=== PATIENT | male | born 1930 | race Two or more races ===

== ENCOUNTER 2016-06-21 16:16 | Inpatient (IN) | payer MEDICARE, OTHER ==
[~2016-06-21] VITALS: Ht 182.9 cm; Wt 68.2 kg
[2016-06-21] VITALS (16 sets, daily range): BP systolic 58–137; BP diastolic 28–117; PULSE 38–88; RESP 16–34; TEMP 90; Ht 182.9 cm; Wt 68.2 kg
[~2016-06-21 16:16] MED LIST: CA CHLORIDE 10% 10 ML SYRINGE ONE; EPINEPHrine 0.1 MG/ML SYG ONE; NA BICARBONATE 8.4% 50 ML SYG ONE
[2016-06-21] MEDS ORDERED: SOD CHLORIDE 0.9% 1,000 ML IV STA (16:18)
[2016-06-21 16:35] LABS: ADD SCAN DIFF NO
[2016-06-21 16:39] LABS: ABNORMAL IP MESSAGE 1; HEMATOCRIT 35.3 % (42.0-52.0); HEMOGLOBIN 12.8 g/dl (14.0-18.0); MEAN CORPUSCULAR HEMOGLOBIN 30.1 pg (29.0-33.0); MEAN CORPUSCULAR HGB CONC 36.3 g/dl (32.0-37.0); MEAN CORPUSCULAR VOLUME 83.1 fl (82.0-101.0); MEAN PLATELET VOLUME 13.8 fl (7.4-10.4); PLATELET COUNT 136 10^3/UL (140-415); RED BLOOD COUNT 4.25 10^6/ul (4.70-6.10); RED CELL DISTRIBUTION WIDTH 15.3 % (11.5-14.5)
[2016-06-21 16:55] LABS: INR 1.82; PROTIME 21.2 Sec (12.2-14.2); PT RATIO 1.7
[2016-06-21 16:56] LABS: PARTIAL THROMBOPLASTIN TIME 34.6 Sec (25.0-35.0)
[2016-06-21 16:57] LABS: ALANINE AMINOTRANSFERASE 41 IU/L (13-69); ALBUMIN 2.6 g/dl (3.3-4.9); ALBUMIN/GLOBULIN RATIO 0.74; ALKALINE PHOSPHATASE 299 IU/L (42-121); ANION GAP 37 (8-16); ASPARTATE AMINO TRANSFERASE 26 IU/L (15-46); BILIRUBIN,INDIRECT 0.2 mg/dl (0-1.1); BILIRUBIN,TOTAL 2.1 mg/dl (0.2-1.3); CHLORIDE 91 mmol/L (97-110); SODIUM 126 mmol/L (135-144); TOTAL PROTEIN 6.1 g/dl (6.1-8.1)
[2016-06-21 17:06] LABS: BLOOD UREA NITROGEN > 240 mg/dl (7-20); CREATININE 14.07 mg/dl (0.61-1.24)
[2016-06-21 17:10] LABS: CARBON DIOXIDE 6 mmol/L (21-31); GLUCOSE 451 mg/dl (70-220); POTASSIUM 8.1 mmol/L (3.5-5.1)
--- NOTE | 2016-06-21 17:11 | RADRPT ---
PROCEDURE: XR Chest. CLINICAL INDICATION: Shortness of breath. Altered mental status. TECHNIQUE: Single frontal view. COMPARISON: None. FINDINGS: The lungs are clear. The heart is enlarged. There is calcification in the aorta consistent with atherosclerosis. There is no pleural effusion. There is no pneumothorax. IMPRESSION: 1. Cardiomegaly and atherosclerosis. 2. Clear lungs. RPTAT: QQ .Ramirez Yee MD, MD Date Time Electronically viewed and signed by .Ramirez Yee MD, MD on 06/21/2016 17:11 .R/
[2016-06-21 17:12] LABS: TROPONIN-I < 0.012 ng/ml (0.00-0.12)
[2016-06-21] MEDS ORDERED: NA POLYST SULFON 15 GM/60 ML BTL PO STA (17:12)
[2016-06-21] MEDS ORDERED: INSULIN REGULAR 10 ML INJ IV STA ×2 (17:12→19:58)
[2016-06-21] MEDS ORDERED: NA BICARBONATE 8.4% 50 ML SYG IV STA ×3 (17:12→23:42)
[2016-06-21] MEDS ORDERED: CA CHLORIDE 10% 10 ML SYRINGE IV STA ×2 (17:12→19:58)
[2016-06-21 17:14] LABS: T3 UPTAKE 48.9 % (23.5-40.5)
[2016-06-21] MEDS ORDERED: CEFEPIME 2GM/50 ML (PMX) 50 ML IVPB STA (17:24)
[2016-06-21] MEDS ORDERED: LEVOFLOXACIN 750MG/D5W (PMX) 150 ML IVPB ONE (17:30)
[2016-06-21] MEDS ORDERED: SOD CHLORIDE 0.9% 1,000 ML IV ONE (17:30)
[2016-06-21] MEDS ORDERED: DEXTROSE 50% 50 ML SYRINGE IV ONE ×2 (17:30→20:00)
[2016-06-21] MEDS ORDERED: AMLO2.5T2 PO (18:06)
--- NOTE | 2016-06-21 18:08 | RADRPT ---
PROCEDURE: CT Brain without contrast. CLINICAL INDICATION: Altered mental status. TECHNIQUE: A CT of the brain without contrast was performed utilizing axial sections from the skul l base through the vertex. The patient was scanned without intravenous contrast enhancement. Sagitta l and coronal reformatted images were obtained using the data from the axial images. Total exam DLP is 900.28 mGy-cm. CTDIvol is 45.01 mGy. One or more of the following dose reduction techniques were used: Automated exposure control, adjustment of the mA and/or kV according to patient size, use of iterative reconstruction technique. COMPARISON: None available. FINDINGS: The images are suboptimal due to patient motion. There is normal burger-white matter differentiation. There is enlargement of the ventricles and subarachnoid spaces consistent with atrophy. There is decreased attenuation of the periventricular white matter consistent with microangiopathic ischemic change. There is no intracranial hemorrhage or space-occupying lesion. There are vascular calcifications consistent with atherosclerosis. There is no skull fracture or lytic lesion. IMPRESSION: 1. Atrophy. 2. Microangiopathic ischemic change. 3. Atherosclerosis. 4. Suboptimal images due to patient motion. 5. No intracranial hemorrhage. 6. Otherwise unremarkable noncontrast CT scan of the brain. RPTAT: QQ .Ramirez Yee MD, Date Time Electronically viewed and signed by .Ramirez Yee MD, on 06/21/2016 18:07 .R/
[2016-06-21] MEDS ORDERED: SODIUM CHLORIDE 0.9% 1L BAG IV* STA (18:09)
[2016-06-21 18:24] LABS: LYMPHOCYTES # 0.4 10^3/ul (0.8-2.9); MONOCYTE # 1.2 10^3/ul (0.3-0.9); NEUTROPHIL # 38.8 10^3/ul (1.6-7.5)
[2016-06-21 18:25] LABS: PLATELET ESTIMATE PLT APPEAR ADEQUATE
[2016-06-21] MEDS ORDERED: INSULIN REGULAR, HUMAN 100 UNIT/1 ML 3ML VIAL IV SCH ×2 (18:30→20:30)
--- NOTE | 2016-06-21 18:44 | ERA ---
ER Documentation Chief Complaint Date/Time DATE: 06/21/16 TIME: 18:34 Chief Complaint ALOC, FOUND DOWN AT HOME UNKNOWN LENGTH OF TIME HPI This is healthy 85-year-old man according to the family he was very active just 2 days ago. The patient had a recent hip replacement a month ago. The patient has been doing well. The family says today he was started having altered level of consciousness and was brought in by EMS. There is no other history given. They state that he has had no cough no complaints no fever no vomiting diarrhea. They state he has been in relatively good health until today. On arrival the patient is awake and seems somewhat confused but in no acute distress ROS All systems reviewed and are negative except as per history of present illness. Medications Home Meds Reported Medications Amlodipine Besylate* (Norvasc*) Unknown Strength Tablet, PO DAILY, TAB 06/21/16 Allergies Allergies: Coded Allergies: No Known Allergy (Unverified , 06/21/16) PMhx/Soc Medical and Surgical Hx: Unable to obtain Smoking Status: Unknown if ever smoked FmHx Family History: No coronary disease Physical Exam Vitals Vital Signs Date Time Temp Pulse Resp B/P Pulse Ox O2 Delivery O2 Flow Rate FiO2 06/21/16 16:30 Nasal Cannula 2 06/21/16 16:18 90.0 84 18 141/116 98 Physical Exam Const: Well-developed, well-nourished Head: Atraumatic, normocephalic Eyes: Normal Conjunctiva, PERRLA, EOMI, normal sclera, no nystagmus ENT: Normal External Ears, Nose and Mouth, moist mucus membranes. Neck: Full range of motion. No meningismus, no lymphadenopathy. Resp: Clear to auscultation bilaterally, no wheezing, rhonchi, rales Cardio: Regular rate and rhythm, no murmurs, S1 S2 present Abd: Soft, non tender x 4, non distended. Normal bowel sounds, no guarding or rebound, no pulsitile abdominal masses or bruits Skin: No petechiae or rashes, no ecchymosis , no maculopapular rash Back: No midline or flank tenderness Ext: No cyanosis, or edema, FROM x 4, normal inspection, neurovascularly intact x 4 Neur: Awake and alert,, smiles, pleasant, somewhat confused STR 5/5 x 4 , sensation intact x 4, no focal findings, cerebellum intact Psych: Normal Mood and Affect Result Diagram: 06/21/16 1625 06/21/16 1625 Results 24 hrs Laboratory Tests Test 06/21/16 16:25 06/21/16 17:40 06/21/16 18:32 06/21/16 19:20 White Blood Count 41.310^3/ul Red Blood Count 4.2510^6/ul Hemoglobin 12.8g/dl Hematocrit 35.3% Mean Corpuscular Volume 83.1fl Mean Corpuscular Hemoglobin 30.1pg Mean Corpuscular Hemoglobin Concent 36.3g/dl Red Cell Distribution Width 15.3% Platelet Count 16054^3/UL Mean Platelet Volume 13.8fl Neutrophils % 94.0% Band Neutrophils % 2.0% Lymphocytes % 1.0% Monocytes % 3.0% Eosinophils % % Neutrophils # 38.810^3/ul Lymphocytes # 0.410^3/ul Monocytes # 1.210^3/ul Eosinophils # 10^3/ul Platelet Estimate PLT APPEAR ADEQUATE Prothrombin Time 21.2Sec Prothrombin Time Ratio 1.7 INR International Normalized Ratio 1.82 Activated Partial Thromboplast Time 34.6Sec Sodium Level 126mmol/L Potassium Level 8.1mmol/L Chloride Level 91mmol/L Carbon Dioxide Level 6mmol/L Anion Gap 37 Blood Urea Nitrogen > 240mg/dl Creatinine 14.07mg/dl Glucose Level 451mg/dl Calcium Level 6.0mg/dl Total Bilirubin 2.1mg/dl Direct Bilirubin 1.90mg/dl Indirect Bilirubin 0.2mg/dl Aspartate Amino Transf (AST/SGOT) 26IU/L Alanine Aminotransferase (ALT/SGPT) 41IU/L Alkaline Phosphatase 299IU/L Troponin I < 0.012ng/ml Total Protein 6.1g/dl Albumin 2.6g/dl Globulin 3.50g/dl Albumin/Globulin Ratio 0.74 Free Thyroxine Index 0.83ug/ml Thyroxine (T4) 1.7ug/dl Triiodothyronine (T3) Uptake 48.9% Lactic Acid Level 2.4mmol/L 2.2mmol/L Urine Color YELLOW Urine Clarity TURBID Urine pH 5.5 Urine Specific [place] 1.025 Urine Ketones 15 Urine Nitrite NEGATIVE Urine Bilirubin NEGATIVE Urine Urobilinogen 0.2 E.U./dL Urine Leukocyte Esterase 3+ Urine Microscopic RBC >50/HPF Urine Microscopic WBC >200/HPF Urine Transitional Epithelial Cells MODERATE Urine Amorphous Urates MANY Urine Bacteria MODERATE Urine Hemoglobin 3+ Urine Glucose 0.1%% Urine Total Protein 4+ Current Medications Medications (Trade) Dose Ordered Sig/Kandace Route PRN Reason Start Time Stop Time Status Last Admin Dose Admin Sodium Chloride (NS) 1,000 ml @ 1,000 mls/hr Q1H STAT IV 06/21/16 16:18 06/21/16 17:17 DC 06/21/16 16:27 Sodium Polystyrene Sulfonate (Kayexalate) 30 gm ONCE STAT PO 06/21/16 17:12 06/21/16 17:13 DC 06/21/16 18:12 Sodium Bicarbonate (Na Bicarb 8.4% Syg) 50 ml ONCE STAT IV 06/21/16 17:12 06/21/16 17:13 DC 06/21/16 18:04 Calcium Chloride (Ca Chloride 10% Syg) 1,000 mg ONCE STAT IV 06/21/16 17:12 06/21/16 17:13 DC 06/21/16 18:04 Insulin Human Regular (Novolin-R) 10 unit ONCE STAT IV 06/21/16 17:12 06/21/16 17:13 DC Dextrose 50 ml 50 ml ONCE ONCE IV 06/21/16 17:30 06/21/16 17:31 DC 06/21/16 18:13 Cefepime HCl 50 ml @ 100 mls/hr ONCE STAT IVPB 06/21/16 17:24 06/21/16 17:53 DC 06/21/16 18:11 Levofloxacin/ Dextrose 150 ml @ 100 mls/hr ONCE ONCE IVPB 06/21/16 17:30 06/21/16 18:59 DC 06/21/16 18:38 Sodium Chloride (NS) 1,000 ml @ 1,000 mls/hr Q1H ONCE IV 06/21/16 17:30 06/21/16 18:29 DC 06/21/16 18:13 Insulin Human Regular (Humulin R) 10 unit ONCE IV 06/21/16 18:30 06/21/16 23:00 06/21/16 18:11 Sodium Chloride (NS) 2,110 ml BOLUS OVER 2 HOURS STAT IV* 06/21/16 18:09 06/21/16 18:28 DC 06/21/16 18:38 Morphine Sulfate (morphine) 2 mg ONCE ONCE IV 06/21/16 19:30 06/21/16 19:31 DC Ondansetron HCl (Zofran Inj) 4 mg ONCE STAT IV 06/21/16 19:09 06/21/16 19:10 DC Lidocaine (Xylocaine 1% (Mdv) 20 ml) 20 ml STK-MED ONCE .ROUTE 06/21/16 19:11 06/21/16 19:12 DC Procedures/MDM EKG: Rate/Rhythm: Undetermined rhythm, wide QRS, hyperacute T waves diffusely QRS, ST, QT: NORMAL CO, QRS, QT] Impression: Abnormal l EKG PROCEDURE: CT Brain without contrast. CLINICAL INDICATION: Altered mental status. TECHNIQUE: A CT of the brain without contrast was performed utilizing axial sections from the skull base through the vertex. The patient was scanned without intravenous contrast enhancement. Sagittal and coronal reformatted images were obtained using the data from the axial images. Total exam DLP is 900.28 mGy-cm. CTDIvol is 45.01 mGy. One or more of the following dose reduction techniques were used: Automated exposure control, adjustment of the mA and/or kV according to patient size, use of iterative reconstruction technique. COMPARISON: None available. FINDINGS: The images are suboptimal due to patient motion. There is normal burger-white matter differentiation. There is enlargement of the ventricles and subarachnoid spaces consistent with atrophy. There is decreased attenuation of the periventricular white matter consistent with microangiopathic ischemic change. There is no intracranial hemorrhage or space-occupying lesion. There are vascular calcifications consistent with atherosclerosis. There is no skull fracture or lytic lesion. IMPRESSION: 1. Atrophy. 2. Microangiopathic ischemic change. 3. Atherosclerosis. 4. Suboptimal images due to patient motion. 5. No intracranial hemorrhage. 6. Otherwise unremarkable noncontrast CT scan of the brain. RPTAT: QQ .Ramirez Yee MD, MD Date Time Electronically viewed and signed by .Ramirez Yee MD, on 06/21/2016 18:07 .R/ CC: IVETTE VILLAGOMEZ DO PROCEDURE: XR Chest. CLINICAL INDICATION: Shortness of breath. Altered mental status. TECHNIQUE: Single frontal view. COMPARISON: None. FINDINGS: The lungs are clear. The heart is enlarged. There is calcification in the aorta consistent with atherosclerosis. There is no pleural effusion. There is no pneumothorax. IMPRESSION: 1. Cardiomegaly and atherosclerosis. 2. Clear lungs. RPTAT: QQ .Ramirez Yee MD, MD Date Time Electronically viewed and signed by .Ramirez Yee MD, MD on 06/21/2016 17:11 .R/ CC: IVETTE VILLAGOMEZ DO Zamorano catheter is placed and belia pus came out. The patient was not complaining of any abdominal pain but after the Zamorano catheter was placed he keeps complaining of pain and reaching for the suprapubic and penis region. I feel this is purely from the Zamorano catheter not from any intra-abdominal process because he had no tenderness on initial exam I treated the hyperkalemia and given him sepsis fluid protocol fluids, blood cultures and antibiotics. Spoke with Dr. Womack and have arranged emergent hemodialysis. Spoke with Dr. Ramirez Yee at 6:30 PM he is going to place a Chauncey catheter now and the patient will go to the ICU to get his dialysis to treat his hyperkalemia and renal failure. Patient's vital signs have remained relatively stable. Current blood pressures 130/66 Admit MDM: Patient's infectious symptoms have not stabilized and the patient is at risk of rapid decompensation. The patient will be admitted for careful hydration, antibiotic therapy, and infectious source control. Severe Sepsis criteria: Infectious source: Urine End organ damage indicated by: Renal failure Lactate > 2.0 mmol/L Hypotension (SBP < 90 or >40 mmHG drop or MAP < 65) Acute Resp Failure (sat < 92% w/o oxygen) [employer] > 2.0 INR > 1.5 Plt < 100 Bili > 2 Sepsis Management: Time of recognition of severe sepsis/septic shock: 1800 Within 3 hours of recognition: Blood cultures x 2 before broad-spectrum antibiotics: Yes 30 ml/kg NS bolus completed Initial lactate 2.4 Repeat lactate 2.2 Accepting Care Team Current data and ongoing care discussed. Time: Admitting Physician: emile Biscuitware Brusher(s): Outstanding Data: None Critical Care Time: 45 minutes Treatments/Evaluations: Close monitoring and treatment of unstable vital signs, cardiorespiratory, and neurologic status, while maintaining tight balance of fluid, respiratory, and cardiac interventions. This includes the administration of emergency fluid management while maintaining close respiratory support as well as the provision of immediate and broad-spectrum antibiotic therapy, while performing a simultaneous assessment for possible sources in order to direct targeted therapy. This time includes discussing the case with the patient and the patient's family. This time also includes the consideration for invasive and chemical support to prevent cardiopulmonary collapse. This time does not include all procedures stated elsewhere in this record. This time also includes reviewing old records, labs and radiological studies. This time includes examining and re-examining the patient. Additionally, this time also includes arranging care with admitting and consulting physicians. Dr. Yee was trying to place the Chauncey catheter and the patient was getting more disoriented and combativ Discussed with the family the need to intubate him and to get the Chauncey placed and go to dialysis. They agreed Endotracheal Intubation by me: Pre assessment performed. See preceding note for details. Pre-oxygenation performed with 100% oxygen RSI: Performed w/o complication or hypoxic events. Medications as ordered. Blade: Mac 4 ET Tube: 7.5 cm Depth: 25] cm at the lip Intubation confirmed by colorimetric CO2, equal breath sounds, quiet over the stomach. Departure Diagnosis: Primary Impression: Hyperkalemia Additional Impressions: Renal failure Sepsis Qualified Code: A41.9 - Sepsis, due to unspecified organism Acidosis Urinary tract infection Qualified Code: N30.00 - Acute cystitis without hematuria Condition: Critical IVETTE VILLAGOMEZ DO June 21, 2016 18:44
[2016-06-21 18:51] LABS: ADD UMIC YES; URINE BILIRUBIN (Dip) NEGATIVE (NEGATIVE); URINE BLOOD (Dip) 3+ (NEGATIVE); URINE KETONES (Dip) 15 (NEGATIVE); URINE LEUKOCYTE ESTERASE (Dip) 3+ (NEGATIVE); URINE NITRITE (Dip) NEGATIVE (NEGATIVE); URINE TOTAL PROTEIN (Dip) 4+ (NEGATIVE); URINE UROBILINOGEN (Dip) 0.2 E.U./dL (0.1-1.0)
[2016-06-21 18:55] LABS: URINE COLOR YELLOW (YELLOW)
[2016-06-21 19:06] LABS: BACTERIA,URINE MODERATE; TRANSITIONAL EPI CELLS,URINE MODERATE; URINE RBCS >50 /HPF (0)
[2016-06-21] MEDS ORDERED: ONDANSETRON 4 MG INJ IV STA (19:09)
[2016-06-21] MEDS ORDERED: LIDOCAINE 1% (MDV) 20 ML INJ ONE (19:11)
[2016-06-21] MEDS ORDERED: morphine 2 MG INJ IV ONE (19:30)
[2016-06-21] MEDS ORDERED: PROPOFOL 100 ML ONE (19:59)
[2016-06-21] MEDS ORDERED: ACETAMINOPHEN 650 MG SUPP PR PRN (20:30)
--- NOTE | 2016-06-21 21:25 | RADRPT ---
PROCEDURE: Ultrasound and x-ray guided placement of right common femoral vein temporary dialysis c mahesh. CLINICAL INDICATION: Acute kidney injury. TECHNIQUE: Informed consent was obtained. The risks including bleeding and infection were explained to the pat tachont's family. The patient's family understood and was willing to proceed. A procedural pause was performed. The patient's name, date of , and procedure to be performed were verified. Limited sonography of the right inguinal region was performed. Noted is a patent right common femoral vein . The central line was inserted with all elements of maximal sterile barrier technique. All of the f ollowing were used: head covering, facial mask, sterile gown, sterile gloves, a large sterile sheet, hand hygiene, and 2% chlorhexidine for cutaneous antisepsis. The right inguinal region was preppe d and draped in the usual sterile fashion. Using local anesthesia, sterile technique, and ultrasound guidance, a 21-gauge micropuncture needle was advanced into the right common femoral vein and a 0.018 inch guidewire was advanced through the needle. The needle was removed and a 5-Green[place]ic micropuncture sheath was advanced over the guidewire. The guidewire and dilator were removed and a 0.035 inch guidewire was advanced through the microp uncture sheath into the common femoral vein. Serial dilatation was performed to 12 Green[place]ic. The tem porary dialysis catheter was then advanced over the guidewire. A 19.5 cm long, 11.5 Green[place]ic [place] temporary dialysis catheter was used. The two ports were flushed with normal saline. The catheter was secured to the skin with 2-0 monofilament. The site was dressed. The patient tolerated the pr ocedure well. COMPARISON: None. FINDINGS: Ultrasound demonstrates a patent right common femoral vein. Images demonstrate the needle entering the right common femoral vein. Ultrasound images were recorded and stored in the patient's medical record. A subsequent radiograph demonstrates the dialysis catheter in satisfactory position. There i s a right hip open reduction and internal fixation with a lateral plate and compression screw. IMPRESSION: 1. Satisfactory placement of right common femoral vein temporary dialysis catheter with x-ray and ul trasound guidance. 2. Right hip open reduction and internal fixation with a lateral plate and compression screw. RPTAT: QQ .Ramirez Yee MD, MD Date Time Electronically viewed and signed by .Ramirez Yee MD, on 06/21/2016 21:25 .R/
--- NOTE | 2016-06-21 21:27 | RADRPT ---
PROCEDURE: XR Chest. CLINICAL INDICATION: Check endotracheal tube position. TECHNIQUE: Single frontal view. COMPARISON: Prior study done earlier the same day. FINDINGS: The endotracheal tube is in satisfactory position with the tip 1 cm above the mikhail. There is mild atelectasis at the left lung base and in the right mid lung zone. The lungs are otherwise clear. The heart size is normal. There is calcification in the aorta consistent with atherosclerosis. There is no pleural effusion. There is no pneumothorax. IMPRESSION: 1. Endotracheal tube in satisfactory position. 2. Mild atelectasis at the left lung base and in the right mid lung zone. 3. Atherosclerosis. 4. Otherwise unremarkable study. RPTAT: QQ .Ramirez Yee MD, MD Date Time Electronically viewed and signed by .Ramirez Yee MD, on 06/21/2016 21:27 .R/
[2016-06-21 21:35] LABS: AADO2 Arterial 274.8 mmHg (7.0-24.0); Allen Test ACCEPTAB; Arterial Base Excess -22.8 mmol/L (-3.0-3); Arterial COHb 0.3 % (0.0-3.0); Arterial HCO3 8.3 mmol/L (22.0-26.0); Arterial MetHb 0.4 % (0.0-1.5); Arterial Total Hemglobin 12.1 g/dl (12.0-18.0); Blood Gas Low PEEP Setting 0 cmH2O; MODE VENT - AC
[2016-06-21 22:28] LABS: ALANINE AMINOTRANSFERASE 45 IU/L (13-69); ALBUMIN/GLOBULIN RATIO 0.66; ALKALINE PHOSPHATASE 251 IU/L (42-121); ANION GAP 29 (8-16); ASPARTATE AMINO TRANSFERASE 29 IU/L (15-46); BILIRUBIN,INDIRECT 0.2 mg/dl (0-1.1); BILIRUBIN,TOTAL 2.1 mg/dl (0.2-1.3); CALCIUM 6.7 mg/dl (8.4-10.2); CHLORIDE 101 mmol/L (97-110); SODIUM 132 mmol/L (135-144)
[2016-06-21] MEDS ORDERED: ATROPINE 1 MG/10 ML SYRINGE ONE (22:29)
--- NOTE | 2016-06-21 22:29 | CONS ---
DATE OF ADMISSION: 06/21/2016 DATE OF CONSULTATION: 06/21/2016 TYPE OF CONSULTATION: Nephrology. REFERRING PHYSICIAN: Dr. Brandt. REASON FOR CONSULTATION: Acute hyperkalemia, potassium 8.1, acute uremic encephalopathy, BUN more t carranza 240, severe metabolic acidosis, bicarbonate 6. HISTORY OF PRESENT ILLNESS: This is an 85-year-old male who has a past medical history of hypertens ion, prediabetes, history of hip surgery in 2016, who was living in [place], but recently moved to [place] to live with his family around. The patient was seen by his primary care doctor lamin estes a month before and has been referred to cardiology for further evaluation, but he denies any other history of diabetes, hyperlipidemia or any other history. The patient was brought in by paramedics to the [facility] Emergency Room because of altered level of consciousness. Per report from family, he was found down, unknown length of time . Family states that the patient is normally alert, oriented and very functional. Today, he was al tered, confused. The patient had hip surgery. He has been using a walker and wheelchair at home. The patient was alert, oriented x2. His respirations were E1 but he was tachypneic. The patient wa s brought into the [facility] emergency room and he was not able to provide any detailed hi story, but his initial CT head without contrast negative. Chest x-ray was negative, but on the chem istry he is noted to have hyperkalemia with a potassium of 8.6, bicarbonate level of 6. His BUN was more than 240 and creatinine was 14.07. His blood sugar was more than 450, but the patient and the family denies any history of diabetes mellitus or any history of medications for diabetes mellitus. The patient became gradually worsened in the emergency room, and he is currently getting intubated b y emergency room physicians for acute respiratory distress. Interventional radiology is planning to go to place a Chauncey dialysis catheter and plan is to do hemodialysis tonight and also for tomorrow morning. I had a very long discussion with the patient's family at bedside including his daughter and son-in-law, and they agreed to initiate hemodialysis and also agreed to intubation and ventilato r care. REVIEW OF SYSTEMS: Unable to obtain from the patient at this point since he is currently lethargic and is going to be intubated soon. PAST MEDICAL HISTORY: Only notable for hypertension. The patient and the family has been denying a pr other significant past medical history. PAST SURGICAL HISTORY: History of hip surgery in late 2016. SOCIAL HISTORY: The patient lives with his daughter in [place]. He has 5 kids. No smoking, a lcohol or recreational drug use as per the family FAMILY HISTORY: All of his siblings have . No history of any chronic kidney disease or stroke in the family as per the patient's daughter. PHYSICAL EXAMINATION: VITAL SIGNS: Temperature 90, heart rate 84, respiration 18, blood pressure 141/116, saturation is 9 8% on 2 liters nasal cannula. GENERAL: Awake, alert, severe distress. HEENT: Pupils equal, round, reactive to light and accommodation. Extraocular muscles are intact. No scleral icterus. NECK: Supple. The patient has jugular venous distention up to the mid neck. No lymphadenopathy. LUNGS: Bibasilar crackles present up to the mid lung zone with expiratory wheezing present. HEART: S1, S2, with regular rhythm. No murmur. ABDOMEN: Soft, nontender, nondistended. Bowel sounds are present. EXTREMITIES: 1 to 2+ pitting edema, no clubbing, no cyanosis. NEUROLOGICAL: The patient is lethargic, uncooperative, not able to cooperate in any neurological ex amination. SKIN: No rash. PSYCHIATRIC: Not able to assess in this situation. LABORATORY DATA/DIAGNOSTIC IMAGING: Sodium 126, potassium 8.1, chloride 91, bicarbonate 6, BUN 240, creatinine 14.07, glucose 451, calci um 6, albumin 2.6. Lactic acid 2.4. Free T4 0.83, alkaline phosphatase 299, PT 21.2, PTT 34.6. IN R 1.82. Urinalysis shows very turbid and pus in the urine, 3+ hemoglobin, 3+ leukocyte esterase, ma ny bacteria, 4+ total protein. WBC 14.1, hemoglobin 12.8, platelet count is 136, MCV 83.1. Chest x -ray clear lung atherosclerosis. CT brain without contrast: No acute findings, atrophy with microa ngiopathic ischemic changes, suboptimal images due to the patient's motions no intracranial hemorrha ge. IMPRESSION: This is an 85-year-old male who was brought in by paramedics because of altered mental status and he is noted to have acute hyperkalemia with potassium up to 8.1. Renal has been consulte d for: 1. Acute hyperkalemia, potassium 8.1, likely secondary to acute kidney injury versus acute kidney i njury on chronic kidney disease. 2. Severe metabolic acidosis with a bicarbonate level of 6, likely secondary to uncontrolled hyperg lycemia along with acute kidney injury causing hydrogen ____ defect. 3. Acute uremic encephalopathy with a BUN of more than 240. 4. Hyponatremia with a sodium of 126, likely secondary to uncontrolled hyperglycemia. 5. Hypoalbuminemia with albumin 2.6 and the patient has a 4+ proteinuria on urinalysis concerned ab out any nephrotic syndrome that has been undiagnosed. 6. Altered mental status secondary to acute uremic encephalopathy. 7. Acute urinary tract infection with belia pus a Zamorano catheter insertion. 8. History of hypertension. 9. History of prediabetes as per the family, no significant history of diabetes or any diabetic nep hropathy as per the family. PLAN: Thank you, Dr. Brandt, for this consultation. 1. The patient is currently seen in the emergency room. He will need insulin drip for his uncontrol led hyperglycemia. The patient already received 1 dose of cefepime and IV Levaquin in the emergency room. Due to his current acute uremic encephalopathy with a BUN of more than 240 and acute hyperka lemia with a potassium of 8.1, he needs to be started on hemodialysis as soon as possible. I had a discussion with the interventional radiologist, Dr. Ramirez Yee to place a temporary Chauncey dialysi s catheter. Once the dialysis catheter is in, the patient's family agreed to initiate hemodialysis. Plan is to do 2 hours of hemodialysis today and 3 hours of hemodialysis tomorrow. 2. Expecting the patient's potassium, sodium and bicarbonate to improve with the help of her dialys is and also insulin drip. 3. The patient currently seen in the emergency room and he will be FULL CODE at this point. 4. I will order the urine studies including a urine sodium, urine protein creatinine ratio, urine e osinophils, CK total, uric acid has been ordered for tomorrow. 5. Renal ultrasound has been ordered to assess the kidney size, echogenicity and to rule out hydron ephrosis. I had a discussion with the patient's daughter at bedside. They agreed to initiate hemodialysis. Th ey also agreed to intubate the patient and place him on a ventilator for acute respiratory failure. The patient is currently FULL CODE at this point. Depending on his situation and improvement with the help of IV fluids and IV antibiotics, will readdressed his code status in the next 1 to 2 days a nd then go from there. The patient's family was at bedside. The patient is seen in the emergency room and he will be getti ng admitted to ICU. Dictated By: RADHA SPRINGER MD, KP/ASH Conf#: [id number] DID#: [id number]
[2016-06-21 22:35] LABS: CARBON DIOXIDE 9 mmol/L (21-31); GLUCOSE 459 mg/dl (70-220); POTASSIUM 6.8 mmol/L (3.5-5.1)
[2016-06-21 22:36] LABS: BLOOD UREA NITROGEN > 240 mg/dl (7-20); CREATININE 11.76 mg/dl (0.61-1.24)
[2016-06-21] MEDS ORDERED: ALBUMIN HUMAN 25% 100 ML ONE (22:40)
[2016-06-21] MEDS ORDERED: MANNITOL 25% 50 ML INJ IV* ONE ×2 (23:00)
[2016-06-21] MEDS ORDERED: NORepinephrine 8MG/250 ML (PMX 250 ML ONE (23:12)
[2016-06-21] MEDS: ALBUMIN HUMAN 25% 100 ML IV PRN ×2 (23:29→23:31)
[2016-06-21] MEDS ORDERED: DEXTROSE 50% 50 ML SYRINGE IV PRN (23:30)
[2016-06-21] MEDS: ACCU-CHEK XX SCH (23:30)
[2016-06-22] VITALS (108 sets, daily range): BP systolic 34–138; BP diastolic 23–78; PULSE 80–164; RESP 15–34
[2016-06-22] MEDS: ACCU-CHEK XX SCH ×23 (00:30→23:25)
[2016-06-22 00:44] LABS: PROTEIN/CREAT RATIO 42.07 RATIO
[2016-06-22 00:55] LABS: ALBUMIN 3.1 g/dl (3.3-4.9); ALBUMIN/GLOBULIN RATIO 1.06; BILIRUBIN,INDIRECT 0.6 mg/dl (0-1.1); BILIRUBIN,TOTAL 2.6 mg/dl (0.2-1.3); CALCIUM 6.9 mg/dl (8.4-10.2); POTASSIUM 4.6 mmol/L (3.5-5.1)
[2016-06-22 01:15] LABS: CREATININE 7.81 mg/dl (0.61-1.24)
[2016-06-22] MEDS: INSULIN HUMAN REGULAR 100 UNIT in SOD CHLORIDE 0.9% 99 ML IV SCH (01:51)
[2016-06-22] MEDS: PANTOPRAZOLE 40 MG INJ IV SCH ×3 (02:03→18:11)
[2016-06-22] MEDS: HEPARIN 5,000 UNIT/0.5 ML VIAL SC SCH ×4 (02:09→22:08)
[2016-06-22] MEDS: DEXTROSE 5%-0.45% NACL 1,000 ML IV SCH ×2 (02:30→03:53)
[2016-06-22 03:13] LABS: ALBUMIN 2.4 g/dl (3.3-4.9)
[2016-06-22 03:14] LABS: POTASSIUM 4.5 mmol/L (3.5-5.1)
[2016-06-22 03:16] LABS: BILIRUBIN,DIRECT 1.5 mg/dl (0.00-0.20); BILIRUBIN,INDIRECT 0.5 mg/dl (0-1.1)
[2016-06-22 03:17] LABS: ALBUMIN/GLOBULIN RATIO 0.92; CALCIUM 6.4 mg/dl (8.4-10.2)
[2016-06-22 03:42] LABS: CREATININE 8.71 mg/dl (0.61-1.24)
[2016-06-22] MEDS: PROPOFOL 100 ML IV SCH ×3 (03:53→21:31)
[2016-06-22 05:11] LABS: ALBUMIN 2.5 g/dl (3.3-4.9); BILIRUBIN,INDIRECT 0.6 mg/dl (0-1.1); BILIRUBIN,TOTAL 2.6 mg/dl (0.2-1.3); CALCIUM 6.4 mg/dl (8.4-10.2); POTASSIUM 4.6 mmol/L (3.5-5.1)
[2016-06-22] MEDS: PIPER-TAZO 2.25 GM (PMX) 50 ML IVPB SCH ×3 (05:23→20:48)
[2016-06-22 05:29] LABS: CREATININE 8.8 mg/dl (0.61-1.24)
[2016-06-22 07:29] LABS: ALBUMIN 2.3 g/dl (3.3-4.9); BILIRUBIN,INDIRECT 0.7 mg/dl (0-1.1); BILIRUBIN,TOTAL 2.7 mg/dl (0.2-1.3); CALCIUM 6.3 mg/dl (8.4-10.2); CREATININE 8.66 mg/dl (0.61-1.24); POTASSIUM 4.6 mmol/L (3.5-5.1); TOTAL PROTEIN 4.6 g/dl (6.1-8.1)
--- NOTE | 2016-06-22 07:42 | HP ---
Date/Time of Note Date/Time of Note DATE: 06/22/16 TIME: 07:13 Assessment/Plan VTE Prophylaxis VTE Prophylaxis Intervention: LMWH Lines/Catheters IV Catheter Type (from Nrs): Peripheral IV Urinary Cath still in place: Yes Reason Cath still needed: other (indicate) (Clinical condition) Assessment/Plan Chief Complaint/Hosp Course This is a unfortunate 85-year-old male being admitted to the ICU floor for: #1 acute respiratory failure: This is likely secondary to uremic encephalopathy. Patient was intubated. And currently on the ventilator. We will continue respiratory support and vent management. ABG ordered we will adjust vent settings as indicated. Pulmonology consult. #2 uremic encephalopathy: At the current time the etiology of his encephalopathy is not known. There is only hypertension and a questionable history of prediabetes. However this does not explain the whole clinical picture this time. We will have continued catheter placed by interventional radiology. He will receive emergency dialysis tonight as well as tomorrow morning. We will continue to monitor electrolytes every 2 hours. #3 Acute renal failure requiring emergent dialysis: At the current time patient will be dialyzed. Will order urine sodium labs renal ultrasound as indicated, CMP, and further studies to determine the etiology of his acute condition. He has had initial creatinine of 14. #4 hyperkalemia: This likely secondary to the acute renal failure. He received initial treatment for his hyperkalemia in the ED. He will undergo dialysis which hopefully will improve his hyperkalemia. #5 hyponatremia: Sodium is likely 131 when adjusted for glucose correction. Patient will undergo dialysis. We will continue to follow #6 Elevated glucose: Patient has a history of apparently prediabetes however currently has glucose was in the 400s. At the current time we will treat him with an insulin drip. Once his sugars drop below 200 we will start him on D5 and half-normal saline. Order an A1c. #7 lactic acidosis: Patient has a lactate of 2.4. And a bicarb of 6. Severe metabolic acidosis likely from the underlying uremic encephalopathy as well as elevated glucose. We will continue to monitor this. #8 urinary tract infection: Patient was positive for leukocytes on the UA patient's urine right now is yellow and puslike. At the current time he did receive IV antibiotics. After dialysis will start him on Zosyn renally dosed. Awaiting urine cultures. #9 Abnormal EKG: monitor on tele, order echo. #10history of hypertension: Start antihypertensives as indicated. #11 prediabetes: Patient currently has sugars in the 400s. Will start him on an insulin drip. Check serial CMP every 2 hours. Once the glucose drops below 200 we will start on D5 and a half normal saline. #12 DVT and GI prophylaxis: Heparin subcu, Protonix IV twice daily Case was discussed with the family as well as Dr. Womack the overedge sewer. Pulmonology was also consulted. Will make further management changes as per the clinical course. Patient is currently a full code. Problems: HPI/ROS Admit Date/Time Admit Date/Time June 21, 2016 at 20:39 Hx of Present Illness This is an 85-year-old male who has a past medical history of hypertension, prediabetes, history of hip surgery in 2016, who was living in [place], but recently moved to [place] to live with his family around. The patient was seen by his primary care doctor about a month before and has been referred to cardiology for further evaluation, as per the family they think he has prediabetes and hypertension. The patient was brought in by paramedics to the [facility] Emergency Room because of altered level of consciousness. As per the family, he was found down, unknown length of time. Family states that the patient is normally alert, oriented and very functional. Today, he was altered, confused. The patient had hip surgery. He has been using a walker and wheelchair at home. The patient was alert, oriented x2. His respirations were E1 but he was tachypneic. The patient was brought into the [facility] emergency room and he was not able to provide any detailed history, but his initial CT head without contrast negative. Chest x-ray was negative, but on the chemistry he is noted to have hyperkalemia with a potassium of 8.6, bicarbonate level of 6. His BUN was more than 240 and creatinine was 14.07. His blood sugar was more than 450, but the family states that he was just prediabetic according to them. He is currently intubated and he will have a Chauncey catheter placed by interventional radiologist. Allergies: NKDA Medications: See ETIENNE . LM Subjective hx not possible: pt non-verbal, pt critical PMH/Family/Social Past Medical History Hypertension, prediabetes Past Surgical History Hip surgery 2016 Family History Significant Family History: no pertinent family hx Social History Alcohol Use: none Smoking Status: Never smoker Drug Use: none Exam/Review of Systems Vital Signs Vitals Vital Signs Date Time Temp Pulse Resp B/P Pulse Ox O2 Delivery O2 Flow Rate FiO2 06/22/16 06:50 102 31 110/42 100 06/22/16 06:00 60 06/22/16 04:50 Mechanical Ventilator 06/22/16 04:05 98.2 06/21/16 16:30 2 Intake and Output 06/21/16 06/21/16 06/22/16 15:00 23:00 07:00 Intake Total 3510 ml 871 ml Output Total 0 ml 1650 ml Balance 3510 ml -779 ml Exam Exam General: Patient is currently intubated, Chauncey cath in place HEENT: Atraumatic, normocephalic. The pupils are equal, round and reactive. Extraocular motor are intact, intubated Neck: Supple with full range of motion. No rigidity or meningismus Chest: Nontender Lungs: Clear to auscultation bilaterally no crackles rales or wheezing Heart: Normal S1-S2, Regular rhythm and rate. No murmur, Abdomen: Soft , nontender, nondistended , bowel sounds are present. Extremities: 1+ pitting edema bilaterally Neurologic: Currently intubated and unable to assess Genitourinary: Clustered yellow pus filled urine in the Zamorano catheter Additional Comments EKG: Rate/Rhythm: Undetermined rhythm, wide QRS, hyperacute T waves diffusely QRS, ST, QT: NORMAL VT, QRS, QT] Impression: Abnormal l EKG PROCEDURE: CT Brain without contrast. CLINICAL INDICATION: Altered mental status. TECHNIQUE: A CT of the brain without contrast was performed utilizing axial sections from the skull base through the vertex. The patient was scanned without intravenous contrast enhancement. Sagittal and coronal reformatted images were obtained using the data from the axial images. Total exam DLP is 900.28 mGy-cm. CTDIvol is 45.01 mGy. One or more of the following dose reduction techniques were used: Automated exposure control, adjustment of the mA and/or kV according to patient size, use of iterative reconstruction technique. COMPARISON: None available. FINDINGS: The images are suboptimal due to patient motion. There is normal burger-white matter differentiation. There is enlargement of the ventricles and subarachnoid spaces consistent with atrophy. There is decreased attenuation of the periventricular white matter consistent with microangiopathic ischemic change. There is no intracranial hemorrhage or space-occupying lesion. There are vascular calcifications consistent with atherosclerosis. There is no skull fracture or lytic lesion. IMPRESSION: 1. Atrophy. 2. Microangiopathic ischemic change. 3. Atherosclerosis. 4. Suboptimal images due to patient motion. 5. No intracranial hemorrhage. 6. Otherwise unremarkable noncontrast CT scan of the brain. RPTAT: QQ .Ramirez Yee MD, MD Date Time Electronically viewed and signed by .Ramirez Yee MD, MD on 06/21/2016 18:07 .R/ CC: IVETTE VILLAGOMEZ DO PROCEDURE: XR Chest. CLINICAL INDICATION: Shortness of breath. Altered mental status. TECHNIQUE: Single frontal view. COMPARISON: None. FINDINGS: The lungs are clear. The heart is enlarged. There is calcification in the aorta consistent with atherosclerosis. There is no pleural effusion. There is no pneumothorax. IMPRESSION: 1. Cardiomegaly and atherosclerosis. 2. Clear lungs. RPTAT: QQ .Ramirez Yee MD, Date Time Electronically viewed and signed by .Ramirez Yee MD, MD on 06/21/2016 17:11 Labs Result Diagram: 06/21/16 1625 06/22/16 0410 Medications Medications Current Medications Acetaminophen (Tylenol Supp) 650 mg Q4H PRN VT PAIN LEVEL 1-3 OR FEVER; Start 06/21/16 at 20:30 Pantoprazole (Protonix Iv) 40 mg BID@06,18 IV Last administered on 06/22/16t 05: 23; Admin Dose 40 MG; Start 06/21/16 at 21:00 Heparin Sodium (Porcine) (Heparin (5000 Units/0.5 ml)) 5,000 unit Q8 SC Last administered on 06/22/16 02:09; Admin Dose 5,000 UNIT; Start 06/21/16 at 22:00 Dextrose (D50w Syringe) 50 ml Q15M PRN IV For BS 50 or less; Start 06/21/16 at 23:30 Dextrose (D50w Syringe) 25 ml Q15M PRN IV BS between 50-70; Start 06/21/16 at 23 :30 Diagnostic Test (Pha) 1 ea 1 ea Q1H XX Last administered on 06/22/16 00:30; Admin Dose 1 EA; Start 06/21/16 at 23:30 Norepinephrine 250 ml @ 1.875 mls/ hr TITRATE IV ; Start 06/21/16 at 23:30 Propofol 100 ml @ 2.045 mls/ hr Q12H IV Last administered on 06/22/16 03:53; Admin Dose 2.045 MLS/HR; Start 06/21/16 at 23:30 Norepinephrine 16 mg/Dextrose 500 ml @ 1.87 mls/hr TITRATE IV ; Start 06/21/16 at 23:45 Dextrose/Sodium Chloride 1,000 ml @ 50 mls/hr Q20H IV Last administered on 06/22 03:53; Admin Dose 50 MLS/HR; Start 06/22/16 at 02:30 Piperacillin Sod/ Tazobactam Sod (Zosyn 2.25gm/ 50ml (Pmx)) 50 ml @ 100 mls/hr Q12 IVPB Last administered on 06/22/16 05:23; Admin Dose 100 MLS/HR; Start 06/22 at 04:00 JOSHUA LOJA June 22, 2016 07:26
--- NOTE | 2016-06-22 07:44 | RADRPT ---
PROCEDURE: US KIDNEYS AND BLADDER CLINICAL INDICATION: Renal insufficiency TECHNIQUE: Sonographic evaluation of the kidneys and bladder was performed using a curved array tr ansducer. COMPARISON: None. FINDINGS: Right kidney measures 10.6 cm in length. Left kidney measures 11.0 cm in length. Normal cortical thickness and echogenicity. No hydronephrosis bilaterally. A Zamorano catheter is seen in a decompressed bladder. Bilateral ureteral jets are seen. Mild pelvic free fluid is seen. IMPRESSION: Unremarkable renal ultrasound. No hydronephrosis. A Zamorano catheter is seen in a decompressed bladder. Small amount of pelvic ascites. RPTAT:PP .Robert Zuniga MD, MD Date Time Electronically viewed and signed by .Robert Zuniga MD, on 06/22/2016 07:44 .V/
[2016-06-22] MEDS ORDERED: MANNITOL 25% 50 ML INJ IV* SCH (08:00)
[2016-06-22] MEDS: DEXTROSE 50% 50 ML SYRINGE IV PRN (08:13)
[2016-06-22 08:53] LABS: AADO2 Arterial 300.8 mmHg (7.0-24.0); Allen Test ACCEPTAB; Arterial Base Excess -5.5 mmol/L (-3.0-3); Arterial COHb 0.3 % (0.0-3.0); Arterial Fraction of Oxyhgb 96.3 % (93.0-99.0); Arterial HCO3 17.5 mmol/L (22.0-26.0); Arterial MetHb 0.4 % (0.0-1.5); Arterial Total Hemglobin 9.7 g/dl (12.0-18.0); Blood Gas Low PEEP Setting 0 cmH2O; MODE VENT - AC
--- NOTE | 2016-06-22 10:13 | CONS ---
Date/Time of Note Date/Time of Note DATE: 06/22/16 TIME: 10:07 Assessment/Plan Assessment/Plan Additional Assessment/Plan Chest x-ray was reviewed from yesterday which is essentially clear. CT of the head also is unremarkable. She currently on 4 drip at 10 mics per kilogram per minute. Ventilator settings; AC of 18, tidal volume 550, PEEP of 0, 60% FiO2. Assessment recommendations; 1. Patient admitted with acute renal failure with severe metabolic acidosis and hyperkalemia. 2. Uremic encephalopathy. 3. Patient also had severe hyperglycemia, currently off insulin drip now. 4. Severe UTI. 5. No significant fluid overload. Start sodium bicarb drip. Give additional 2 Amps IV push 1. Patient will be dialyzed again today. Continue current antibiotics. Once the patient's metabolic abnormalities are corrected, patient would warrant a sedation vacation. I did have a detailed discussion the patient's daughter at bedside and answered all her questions. Consultation Date/Type/Reason Admit Date/Time June 21, 2016 at 20:39 Date of Consultation: June 22, 2016 Type of Consultation: Pulmonary/critical care Reason for Consultation Pulmonary consultations obtained for evaluation and management of respiratory failure. Patient admitted with acute renal failure with severe metabolic acidosis and hyperglycemia. Next History presenting any; patient is a 85-year-old [place] male who was brought into the hospital yesterday with altered mental status. Upon further evaluation patient was diagnosed with acute renal failure with severe hyperkalemia as well as severe metabolic acidosis. The patient was intubated and underwent emergent dialysis. By the time I saw him the patient is orally intubated, somewhat arousable. Maintain on propofol drip for sedation. History was obtained from medical records as well as the patient's daughter who was present in the room. According to the patient's daughter there is no history of any known coronary artery disease or any kidney injury in the past. The patient was doing fairly well until the symptoms started just a few days ago with altered level of consciousness. As well as increasing lower extremity edema. Past medical history; 1. Essentially none. Except for hip surgery. Medications; were reviewed. Allergies; none Social history; patient never smoked, no history of alcohol or drug abuse. Family history; patient is a . Has 5 children. No show any significant illnesses in the family. 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 Review systems; currently unable to be obtained. General exam; elderly male, orally intubated, currently in no distress. Social History Alcohol Use: none Smoking Status: Never smoker Drug Use: none Exam/Review of Systems Vital Signs Vitals Vital Signs Date Time Temp Pulse Resp B/P Pulse Ox O2 Delivery O2 Flow Rate FiO2 06/22/16 09:03 99 30 100 60 06/22/16 06:50 110/42 06/22/16 04:50 Mechanical Ventilator 06/22/16 04:05 98.2 06/21/16 16:30 2 Intake and Output 06/21/16 06/21/16 06/22/16 15:00 23:00 07:00 Intake Total 3510 ml 871 ml Output Total 0 ml 1650 ml Balance 3510 ml -779 ml Exam HEENT exam is; supple neck, no JVD. No lymphadenopathy. Midline trachea. No thyromegaly. Orally intubated. Patient is edentulous. There was a small bilaterally. Bilateral cataracts are present. No neck bruits. No thyromegaly. Chest examination; clear to auscultation. S1-S2 audible, no murmurs. Regular rhythm. Abdomen examination; soft, scaphoid. No organomegaly. Bowel sounds audible. Extremity examination; 1+ pitting edema lower extremities bilaterally. Pulses 1 + bilaterally. 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 Results Result Diagram: 06/21/16 1625 06/22/16 0550 Results 24 hrs Laboratory Tests Test 06/21/16 16:25 06/21/16 17:40 06/21/16 18:32 06/21/16 19:20 White Blood Count 41.3 H Red Blood Count 4.25 L Hemoglobin 12.8 L Hematocrit 35.3 L Mean Corpuscular Volume 83.1 Mean Corpuscular Hemoglobin 30.1 Mean Corpuscular Hemoglobin Concent 36.3 Red Cell Distribution Width 15.3 H Platelet Count 136 L Mean Platelet Volume 13.8 H Neutrophils % 94.0 H Band Neutrophils % 2.0 Lymphocytes % 1.0 L Monocytes % 3.0 Eosinophils % Neutrophils # 38.8 H Lymphocytes # 0.4 L Monocytes # 1.2 H Eosinophils # Platelet Estimate PLT APPEAR ADEQUATE Prothrombin Time 21.2 H Prothrombin Time Ratio 1.7 INR International Normalized Ratio 1.82 Activated Partial Thromboplast Time 34.6 Sodium Level 126 L Potassium Level 8.1 *H Chloride Level 91 L Carbon Dioxide Level 6 *L Anion Gap 37 H Blood Urea Nitrogen > 240 H Creatinine 14.07 H Glucose Level 451 *H Calcium Level 6.0 L Total Bilirubin 2.1 H Direct Bilirubin 1.90 H Indirect Bilirubin 0.2 Aspartate Amino Transf (AST/SGOT) 26 Alanine Aminotransferase (ALT/SGPT) 41 Alkaline Phosphatase 299 H Troponin I < 0.012 Total Protein 6.1 Albumin 2.6 L Globulin 3.50 H Albumin/Globulin Ratio 0.74 Free Thyroxine Index 0.83 Thyroxine (T4) 1.7 *L Triiodothyronine (T3) Uptake 48.9 H Lactic Acid Level 2.4 H 2.2 Urine Color YELLOW Urine Clarity TURBID H Urine pH 5.5 Urine Specific [place]cher 1.025 Urine Ketones 15 Urine Nitrite NEGATIVE Urine Bilirubin NEGATIVE Urine Urobilinogen 0.2 E.U./dL Urine Leukocyte Esterase 3+ H Urine Microscopic RBC >50 Urine Microscopic WBC >200 Urine Transitional Epithelial Cells MODERATE Urine Amorphous Urates MANY Urine Bacteria MODERATE Urine Eosinophils % 0.0 Urine Hemoglobin 3+ H Urine Random Creatinine 14.26 L Urine Random Sodium 119 H Urine Protein/Creatinine Ratio 42.07 Urine Glucose 0.1% H Urine Total Protein Test 06/21/16 21:30 06/21/16 21:56 06/22/16 00:28 06/22/16 01:01 Blood Gas Specimen Source Blood arterial Arterial Blood Date Drawn 06/21/2016 9:25:15 PM Arterial Blood pH (Temp corrected) 6.964 *L Arterial Blood pCO2 (Temp correct) 37.3 Arterial Blood pO2 (Temp corrected) 112.0 H Arterial Blood HCO3 8.3 *L Arterial Blood Base Excess -22.8 L Arterial Blood Oxygen Saturation 95.7 Jack Test ACCEPTAB Arterial Blood Gas Puncture Site Left Radial Arterial Blood Carboxyhemoglobin 0.3 Arterial Blood Methemoglobin 0.4 Blood Gas A-a O2 Differential 274.8 H Oxyhemoglobin Percent 95.0 Total Hemoglobin 12.1 Blood Gas Temperature 37.0 Blood Gas Respiration Rate 14.0 Blood Gas Actual Respiration Rate 16 Blood Gas Modality VENT - AC FiO2 60.0 Blood Gas Tidal Volume 550.0 Blood Gas Low PEEP Setting 0 Blood Gas Critical Value Read Back Cezar LOJA MD Blood Gas Notified Whom HENRI Blood Gas Notified Time 06/21/2016 9:35:07 PM Sodium Level 132 L 138 Potassium Level 6.8 *H 4.6 # Chloride Level 101 # 98 Carbon Dioxide Level 9 *L 21 # Anion Gap 29 #H 24 H Blood Urea Nitrogen > 240 H 168 H Creatinine 11.76 #H 7.81 #H Glucose Level 459 *H 280 #H Lactic Acid Level 2.9 H Calcium Level 6.7 L 6.9 L Magnesium Level 3.0 H Total Bilirubin 2.1 H 2.6 H Direct Bilirubin 1.90 H 2.00 H Indirect Bilirubin 0.2 0.6 Aspartate Amino Transf (AST/SGOT) 29 26 Alanine Aminotransferase (ALT/SGPT) 45 38 Alkaline Phosphatase 251 H 318 H Total Protein 5.0 #L 6.0 #L Albumin 2.0 L 3.1 #L Globulin 3.00 2.90 Albumin/Globulin Ratio 0.66 1.06 Bedside Glucose 239 H Test 06/22/16 02:17 06/22/16 02:32 06/22/16 03:47 06/22/16 04:10 Bedside Glucose 262 H 186 Sodium Level 141 139 Potassium Level 4.5 4.6 Chloride Level 99 102 Carbon Dioxide Level 19 L 18 L Anion Gap 28 H 24 H Blood Urea Nitrogen 184 H 182 H Creatinine 8.71 H 8.80 H Glucose Level 216 153 Calcium Level 6.4 L 6.4 L Total Bilirubin 2.0 H 2.6 H Direct Bilirubin 1.50 #H 2.00 #H Indirect Bilirubin 0.5 0.6 Aspartate Amino Transf (AST/SGOT) 27 28 Alanine Aminotransferase (ALT/SGPT) 34 37 Alkaline Phosphatase 192 H 203 H Total Protein 5.0 #L 5.0 L Albumin 2.4 L 2.5 L Globulin 2.60 2.50 Albumin/Globulin Ratio 0.92 1.00 Test 06/22/16 05:08 06/22/16 05:50 06/22/16 06:10 06/22/16 07:00 Bedside Glucose 117 98 Sodium Level 140 Potassium Level 4.6 Chloride Level 103 Carbon Dioxide Level 17 L Anion Gap 25 H Blood Urea Nitrogen 188 H Creatinine 8.66 H Glucose Level 98 # Hemoglobin A1c 8.3 H Uric Acid 14.0 H Calcium Level 6.3 L Total Bilirubin 2.7 H Direct Bilirubin 2.00 H Indirect Bilirubin 0.7 Aspartate Amino Transf (AST/SGOT) 31 Alanine Aminotransferase (ALT/SGPT) 32 Alkaline Phosphatase 191 H Creatine Kinase 42 Total Protein 4.6 L Albumin 2.3 L Globulin 2.30 Albumin/Globulin Ratio 1.00 Blood Gas Specimen Source Blood arterial Arterial Blood Date Drawn 06/22/2016 7:38:14 AM Arterial Blood pH (Temp corrected) 7.447 Arterial Blood pCO2 (Temp correct) 25.9 L Arterial Blood pO2 (Temp corrected) 98.5 H Arterial Blood HCO3 17.5 L Arterial Blood Base Excess -5.5 L Arterial Blood Oxygen Saturation 97.0 Jack Test ACCEPTAB Arterial Blood Gas Puncture Site Right Radial Arterial Blood Carboxyhemoglobin 0.3 Arterial Blood Methemoglobin 0.4 Blood Gas A-a O2 Differential 300.8 H Oxyhemoglobin Percent 96.3 Total Hemoglobin 9.7 L Blood Gas Temperature 37.0 Blood Gas Respiration Rate 18.0 Blood Gas Actual Respiration Rate 27 Blood Gas Modality VENT - AC FiO2 60.0 Blood Gas Tidal Volume 550.0 Blood Gas Low PEEP Setting 0 Blood Gas Notified Whom JLD Blood Gas Notified Time 06/22/2016 8:53:17 AM Test 06/22/16 07:08 06/22/16 08:07 06/22/16 08:33 06/22/16 08:51 Bedside Glucose 170 52 L 118 93 Test 06/22/16 09:05 Bedside Glucose 79 Medications Medications Current Medications Acetaminophen (Tylenol Supp) 650 mg Q4H PRN OK PAIN LEVEL 1-3 OR FEVER; Start 06/21/16 at 20:30 Pantoprazole (Protonix Iv) 40 mg BID@06,18 IV Last administered on 06/22/16 05: 23; Admin Dose 40 MG; Start 06/21/16 at 21:00 Heparin Sodium (Porcine) (Heparin (5000 Units/0.5 ml)) 5,000 unit Q8 SC Last administered on 06/22/16 07:46; Admin Dose 5,000 UNIT; Start 06/21/16 at 22:00 Dextrose (D50w Syringe) 50 ml Q15M PRN IV For BS 50 or less; Start 06/21/16 at 23:30 Dextrose (D50w Syringe) 25 ml Q15M PRN IV BS between 50-70 Last administered on 06/22/16 08:13; Admin Dose 25 ML; Start 06/21/16 at 23:30 Diagnostic Test (Pha) 1 ea 1 ea Q1H XX Last administered on 06/22/16 09:47; Admin Dose 1 EA; Start 06/21/16 at 23:30 Norepinephrine 250 ml @ 1.875 mls/ hr TITRATE IV ; Start 06/21/16 at 23:30 Propofol 100 ml @ 2.045 mls/ hr Q12H IV Last administered on 06/22/16 03:53; Admin Dose 2.045 MLS/HR; Start 06/21/16 at 23:30 Norepinephrine 16 mg/Dextrose 500 ml @ 1.87 mls/hr TITRATE IV ; Start 06/21/16 at 23:45 Dextrose/Sodium Chloride 1,000 ml @ 50 mls/hr Q20H IV Last administered on 06/22 03:53; Admin Dose 50 MLS/HR; Start 06/22/16 at 02:30 Piperacillin Sod/ Tazobactam Sod (Zosyn 2.25gm/ 50ml (Pmx)) 50 ml @ 100 mls/hr Q12 IVPB Last administered on 06/22/16 09:55; Admin Dose 100 MLS/HR; Start 06/22 at 04:00 MARK WARD June 22, 2016 10:12
[2016-06-22 10:21] LABS: ALBUMIN 2.1 g/dl (3.3-4.9)
[2016-06-22 10:22] LABS: POTASSIUM 4.4 mmol/L (3.5-5.1)
[2016-06-22 10:24] LABS: ALBUMIN/GLOBULIN RATIO 0.84; BILIRUBIN,DIRECT 1.5 mg/dl (0.00-0.20); BILIRUBIN,INDIRECT 0.7 mg/dl (0-1.1); BILIRUBIN,TOTAL 2.2 mg/dl (0.2-1.3); TOTAL PROTEIN 4.6 g/dl (6.1-8.1)
[2016-06-22 10:25] LABS: CALCIUM 6.1 mg/dl (8.4-10.2)
[2016-06-22] MEDS ORDERED: NA BICARBONATE 8.4% 50 ML SYG IV ONE (10:30)
[2016-06-22 10:33] LABS: CREATININE 9.2 mg/dl (0.61-1.24)
[2016-06-22] MEDS: NORepinephrine 8MG/250 ML (PMX 250 ML IV SCH ×2 (11:03→17:42)
[2016-06-22] MEDS ORDERED: SODIUM BICARBONATE (IV ADD) 100 MEQ in DEXTROSE 5%-0.45% NACL 900 ML IV SCH (11:30)
[2016-06-22] MEDS ORDERED: AMIODARONE 150MG/D5W BOLUS 100 ML ONE (12:20)
[2016-06-22] MEDS ORDERED: AMIODARONE 150MG/D5W BOLUS 100 ML IV ONE (12:30)
[2016-06-22] MEDS ORDERED: AMIODARONE 900 MG in DEXTROSE 5% 482 ML IV SCH (12:30)
--- NOTE | 2016-06-22 12:49 | RADRPT ---
Echocardiogram Report Patient Name: SANDI DING Gender: Male Date: 1930 Study Date: 22-Jun-2016 Art Teacher: Trell Andrews RDCS Location: 108 Ref. Physician: JOSHUA LOJA Quality: Technically Difficult Study Procedures: Transthoracic echocardiogram with complete 2D, M-Mode, and doppler examination. Indications: fluid overload. 2D/M Mode Doppler Measurement Value Normal Ranges Measurement Value Normal Ranges LVIDd 2D 3.4 3.5 - 5.6 cm AV Peak Riley 1.5 m/sec LVIDs 2D 2.5 2.1 - 4.1 cm AV Peak PG 9.5 mmHg LVPWd 2D 1.3 0.6 - 1.1 cm LVOT Peak Riley 1.4 m/sec IVSd 2D 1.3 0.6 - 1.1 cm LVOT Peak PG 8.1 mmHg AoR Diam 2D 2.8 2.0 - 3.7 cm MV E Peak Riley 0.7 m/sec EDV 2D 46.6 cm3 MV A Peak Riley 0.8 m/sec ESV 2D 15.5 cm3 MV E/A 0.8 LA Dimen 2D 3.1 2.3 - 4.0 cm MV Decel Time 268 msec MV Decel [place] 3 MV E/A 0.8 Findings Left Ventricle: Normal left ventricular systolic function. Normal left ventricular cavity size. Mild concentric left ventricular hypertrophy. Ejection fraction is visually estimated at 65 %. Tissue Doppler/Mitral Doppler indices are consistent with impaired relaxation (Stage I diastolic dysfunction). Right Ventricle: Normal right ventricular size. Normal right ventricular systolic function. Left Atrium: The left atrium is normal in size. Right Atrium: The right atrium is normal in size. Mitral Valve: Normal appearance and function of the mitral valve with trace physiologic regurgitation. Aortic Valve: No hemodynamically significant aortic stenosis by doppler. Aortic cusps appear mildly calcified. Trace aortic valve regurgitation. Tricuspid Valve: Normal appearance and function of the tricuspid valve with trace physiologic regurgitation. Pulmonic Valve: Normal pulmonic valve appearance. There is trace pulmonic regurgitation. Pericardium: Normal pericardium with no significant pericardial effusion. Left pleural effusion seen. Aorta: Normal aortic root. IVC: Normal size and normal respiratory collapse consistent with normal right atrial pressure. Conclusions 1.Normal left ventricular systolic function. Normal left ventricular cavity size. Mild concentric left ventricular hypertrophy. Ejection fraction is visually estimated at 65 %. Tissue Doppler/Mitral Doppler indices are consistent with impaired relaxation (Stage I diastolic dysfunction). 2.Normal right ventricular size. Normal right ventricular systolic function. 3.The left atrium is normal in size. 4.The right atrium is normal in size. 5.No significant valvular stenosis or regurgitation seen. 6.Normal pericardium with no significant pericardial effusion. Left pleural effusion seen. Electronically Signed By: Osbaldo Valiente 22-Jun-2016 12:48:13 -0700 Patient Name: SANDI DING Study Date: 22-Jun-2016 [id number]
[2016-06-22] MEDS: SODIUM BICARBONATE (IV ADD) 100 MEQ in DEXTROSE 5%-0.45% NACL 900 ML IV SCH (13:02)
[2016-06-22 14:35] LABS: CALCIUM 7.9 mg/dl (8.4-10.2); CREATININE 5.89 mg/dl (0.61-1.24); POTASSIUM 4.1 mmol/L (3.5-5.1)
--- NOTE | 2016-06-22 14:39 | QN ---
Documentation Comment 85-year-old man status post cardiac arrest with return of spontaneous circulation. He is already intubated and requires IV cardiac pressor medications to maintain blood pressure. Patient only has peripheral IV access at this time, request was made for central line placement. The patient's PMD and I both spoke to family members regarding the need for central line placement , and they agreed. Central Line Placement by me: Patient consented, sterilely draped, full prep, gown, glove, mask, time out performed. Anesthesia: 1% lidocaine locally Location: Right subclavian vein Device: Multiple lumen Technique: Seldinger technique. Secured with suture. Results: Venous return from all ports with easy saline flush. No complications. The entire Guide wire retrieved and disposed of. Chest x-ray ordered results pending I will follow-up. BRYANT FARRELL MD June 22, 2016 14:39
--- NOTE | 2016-06-22 14:56 | RADRPT ---
AMENDMENT: 06/22/2016 2:58:41 PM Leonardo Farias Md The second to last sentence in the findings should read: No pneumothorax is visualized. The third impression should read: Right-sided central line with its tip in the expected location of the distal superior vena cava. No visualized pneumothorax. PROCEDURE: XR Chest 1 view. CLINICAL INDICATION: Status post central line placement TECHNIQUE: AP views of the chest was obtained. COMPARISON: Yesterday FINDINGS: The heart is large. Calcified atherosclerosis is noted in the aorta. Endotracheal tube is stable an d appears in grossly appropriate location. Nasogastric tube has its distal end curled in the expect ed location of the stomach. Right-sided central line has its tip in the expected location of the di stal superior vena cava. Diffuse interstitial prominence in both lungs is unchanged. Retrocardiac opacity is stable. No pneumothorax as visualized. The osseous structures are unchanged. IMPRESSION: Cardiomegaly with calcified atherosclerosis in the aorta. Nasogastric tube with its distal end in the expected location of the stomach. Right-sided central line with its tip in the expected location of the distal superior vena cava. No Zulema pneumothorax. Stable diffuse mild interstitial prominence in both lungs. Stable retrocardiac opacity that may reflect left lower lobe atelectasis or infiltrate combined with small pleural effusion. RPTAT: AA .Leonardo Farias MD, Date Time Electronically viewed and signed by .Leonardo Farias MD, on 06/22/2016 14:59 .P/
[2016-06-22] MEDS: ARTIFICIAL TEARS 15 ML OPH BOTH EYES SCH ×3 (15:06→20:48)
--- NOTE | 2016-06-22 16:29 | CONS ---
Date/Time of Note Date/Time of Note DATE: 06/22/16 TIME: 16:22 Assessment/Plan Assessment/Plan Additional Assessment/Plan 1. Acute hyperkalemia, potassium 8.1, emegently started on HD yesterday night 2. Severe metabolic acidosis with a bicarbonate level of 6, s/p HD yesterday and today 3. Acute uremic encephalopathy with a BUN of more than 240. 4. Hyponatremia with a sodium of 126, likely secondary to uncontrolled hyperglycemia. 5. Hypoalbuminemia with albumin 2.6 and the patient has a 4+ proteinuria on urinalysis concerned about proteinuric CKD that has been undiagnosed. 6. Altered mental status secondary to acute uremic encephalopathy. 7. Acute urinary tract infection with belia pus a Zamorano catheter insertion. 8. History of hypertension. 9. History of prediabetes as per the family, no significant history of diabetes or any diabetic nephropathy as per the family. PLAN: HBA1c 8.6- c/w with previous uncontrolled Hyeprglycemia Uric acid high S/p Emergent HD yesterday, today pt went into SVT then to bradycardia - had a code blue called in while getting hD, HD stopped, had a resuscitated, he revived back, now on levophed gtt and Bicarbonate drip will wait for pt to be more stable and BP more stable before considering next HD Amiodarone for atrial fibrillation will continue to follow up on patient. pt is made DNR now, continue levophed gtt and Bicarbonate drip will follow up Consultation Date/Type/Reason Admit Date/Time June 21, 2016 at 20:39 Initial Consult Date 06/21/16 Type of Consultation: NEPHROLOGY Reason for Consultation acute hyperkalemia, acute Uremic encephalopathy Referring Provider: STORM MONTANO 24 HR Interval Summary Free Text/Dictation pt went into SVT then to bradycardia - had a code blue called in while getting hD, HD stopped, had a resuscitated, he revived back, now on levophed gtt and Bicarbonate drip Exam/Review of Systems Vital Signs Vitals Vital Signs Date Time Temp Pulse Resp B/P Pulse Ox O2 Delivery O2 Flow Rate FiO2 06/22/16 16:00 134 06/22/16 15:31 26 100 100 06/22/16 14:30 102/49 Mechanical Ventilator 06/22/16 12:00 98.4 06/21/16 16:30 2 Intake and Output 5/7/17 5/7/17 5/8/17 15:00 23:00 07:00 Intake Total 3510 ml 871 ml Output Total 0 ml 1650 ml Balance 3510 ml -779 ml Exam GENERAL: intubated, sedated on ventilator HEENT: ET tube in place NECK: Supple. no LAD . LUNGS: Bibasilar crackles present up to the mid lung zone with expiratory wheezing present. HEART: S1, S2, irregularly irregular . No murmur. ABDOMEN: Soft, nontender, nondistended. Bowel sounds are present. EXTREMITIES: 1 to 2+ pitting edema, no clubbing, no cyanosis. NEUROLOGICAL: sedated on ventilator, not able to assess . Results Result Diagram: 06/21/16 1625 06/22/16 1350 Results 24 hrs Laboratory Tests Test 06/21/16 16:25 06/21/16 17:40 06/21/16 18:32 06/21/16 19:20 White Blood Count 41.3 H Red Blood Count 4.25 L Hemoglobin 12.8 L Hematocrit 35.3 L Mean Corpuscular Volume 83.1 Mean Corpuscular Hemoglobin 30.1 Mean Corpuscular Hemoglobin Concent 36.3 Red Cell Distribution Width 15.3 H Platelet Count 136 L Mean Platelet Volume 13.8 H Neutrophils % 94.0 H Band Neutrophils % 2.0 Lymphocytes % 1.0 L Monocytes % 3.0 Eosinophils % Neutrophils # 38.8 H Lymphocytes # 0.4 L Monocytes # 1.2 H Eosinophils # Platelet Estimate PLT APPEAR ADEQUATE Prothrombin Time 21.2 H Prothrombin Time Ratio 1.7 INR International Normalized Ratio 1.82 Activated Partial Thromboplast Time 34.6 Sodium Level 126 L Potassium Level 8.1 *H Chloride Level 91 L Carbon Dioxide Level 6 *L Anion Gap 37 H Blood Urea Nitrogen > 240 H Creatinine 14.07 H Glucose Level 451 *H Calcium Level 6.0 L Total Bilirubin 2.1 H Direct Bilirubin 1.90 H Indirect Bilirubin 0.2 Aspartate Amino Transf (AST/SGOT) 26 Alanine Aminotransferase (ALT/SGPT) 41 Alkaline Phosphatase 299 H Troponin I < 0.012 Total Protein 6.1 Albumin 2.6 L Globulin 3.50 H Albumin/Globulin Ratio 0.74 Free Thyroxine Index 0.83 Thyroxine (T4) 1.7 *L Triiodothyronine (T3) Uptake 48.9 H Lactic Acid Level 2.4 H 2.2 Urine Color YELLOW Urine Clarity TURBID H Urine pH 5.5 Urine Specific [place] 1.025 Urine Ketones 15 Urine Nitrite NEGATIVE Urine Bilirubin NEGATIVE Urine Urobilinogen 0.2 E.U./dL Urine Leukocyte Esterase 3+ H Urine Microscopic RBC >50 Urine Microscopic WBC >200 Urine Transitional Epithelial Cells MODERATE Urine Amorphous Urates MANY Urine Bacteria MODERATE Urine Eosinophils % 0.0 Urine Hemoglobin 3+ H Urine Random Creatinine 14.26 L Urine Random Sodium 119 H Urine Protein/Creatinine Ratio 42.07 Urine Glucose 0.1% H Urine Total Protein Test 06/21/16 21:30 06/21/16 21:56 06/22/16 00:28 06/22/16 01:01 Blood Gas Specimen Source Blood arterial Arterial Blood Date Drawn 06/21/2016 9:25:15 PM Arterial Blood pH (Temp corrected) 6.964 *L Arterial Blood pCO2 (Temp correct) 37.3 Arterial Blood pO2 (Temp corrected) 112.0 H Arterial Blood HCO3 8.3 *L Arterial Blood Base Excess -22.8 L Arterial Blood Oxygen Saturation 95.7 Jack Test ACCEPTAB Arterial Blood Gas Puncture Site Left Radial Arterial Blood Carboxyhemoglobin 0.3 Arterial Blood Methemoglobin 0.4 Blood Gas A-a O2 Differential 274.8 H Oxyhemoglobin Percent 95.0 Total Hemoglobin 12.1 Blood Gas Temperature 37.0 Blood Gas Respiration Rate 14.0 Blood Gas Actual Respiration Rate 16 Blood Gas Modality VENT - AC FiO2 60.0 Blood Gas Tidal Volume 550.0 Blood Gas Low PEEP Setting 0 Blood Gas Critical Value Read Back Cezar LOJA MD Blood Gas Notified Whom [place] Blood Gas Notified Time 06/21/2016 9:35:07 PM Sodium Level 132 L 138 Potassium Level 6.8 *H 4.6 # Chloride Level 101 # 98 Carbon Dioxide Level 9 *L 21 # Anion Gap 29 #H 24 H Blood Urea Nitrogen > 240 H 168 H Creatinine 11.76 #H 7.81 #H Glucose Level 459 *H 280 #H Lactic Acid Level 2.9 H Calcium Level 6.7 L 6.9 L Magnesium Level 3.0 H Total Bilirubin 2.1 H 2.6 H Direct Bilirubin 1.90 H 2.00 H Indirect Bilirubin 0.2 0.6 Aspartate Amino Transf (AST/SGOT) 29 26 Alanine Aminotransferase (ALT/SGPT) 45 38 Alkaline Phosphatase 251 H 318 H Total Protein 5.0 #L 6.0 #L Albumin 2.0 L 3.1 #L Globulin 3.00 2.90 Albumin/Globulin Ratio 0.66 1.06 Bedside Glucose 239 H Test 06/22/16 02:17 06/22/16 02:32 06/22/16 03:47 06/22/16 04:10 Bedside Glucose 262 H 186 Sodium Level 141 139 Potassium Level 4.5 4.6 Chloride Level 99 102 Carbon Dioxide Level 19 L 18 L Anion Gap 28 H 24 H Blood Urea Nitrogen 184 H 182 H Creatinine 8.71 H 8.80 H Glucose Level 216 153 Calcium Level 6.4 L 6.4 L Total Bilirubin 2.0 H 2.6 H Direct Bilirubin 1.50 #H 2.00 #H Indirect Bilirubin 0.5 0.6 Aspartate Amino Transf (AST/SGOT) 27 28 Alanine Aminotransferase (ALT/SGPT) 34 37 Alkaline Phosphatase 192 H 203 H Total Protein 5.0 #L 5.0 L Albumin 2.4 L 2.5 L Globulin 2.60 2.50 Albumin/Globulin Ratio 0.92 1.00 Test 06/22/16 05:08 06/22/16 05:50 06/22/16 06:10 06/22/16 07:00 Bedside Glucose 117 98 Sodium Level 140 Potassium Level 4.6 Chloride Level 103 Carbon Dioxide Level 17 L Anion Gap 25 H Blood Urea Nitrogen 188 H Creatinine 8.66 H Glucose Level 98 # Hemoglobin A1c 8.3 H Uric Acid 14.0 H Calcium Level 6.3 L Total Bilirubin 2.7 H Direct Bilirubin 2.00 H Indirect Bilirubin 0.7 Aspartate Amino Transf (AST/SGOT) 31 Alanine Aminotransferase (ALT/SGPT) 32 Alkaline Phosphatase 191 H Creatine Kinase 42 Total Protein 4.6 L Albumin 2.3 L Globulin 2.30 Albumin/Globulin Ratio 1.00 Blood Gas Specimen Source Blood arterial Arterial Blood Date Drawn 06/22/2016 7:38:14 AM Arterial Blood pH (Temp corrected) 7.447 Arterial Blood pCO2 (Temp correct) 25.9 L Arterial Blood pO2 (Temp corrected) 98.5 H Arterial Blood HCO3 17.5 L Arterial Blood Base Excess -5.5 L Arterial Blood Oxygen Saturation 97.0 Jack Test ACCEPTAB Arterial Blood Gas Puncture Site Right Radial Arterial Blood Carboxyhemoglobin 0.3 Arterial Blood Methemoglobin 0.4 Blood Gas A-a O2 Differential 300.8 H Oxyhemoglobin Percent 96.3 Total Hemoglobin 9.7 L Blood Gas Temperature 37.0 Blood Gas Respiration Rate 18.0 Blood Gas Actual Respiration Rate 27 Blood Gas Modality VENT - AC FiO2 60.0 Blood Gas Tidal Volume 550.0 Blood Gas Low PEEP Setting 0 Blood Gas Notified Whom JLD Blood Gas Notified Time 06/22/2016 8:53:17 AM Test 06/22/16 07:08 06/22/16 08:07 06/22/16 08:33 06/22/16 08:51 Bedside Glucose 170 52 L 118 93 Test 06/22/16 09:05 06/22/16 09:45 06/22/16 09:58 06/22/16 11:11 Bedside Glucose 79 109 113 Sodium Level 140 Potassium Level 4.4 Chloride Level 101 Carbon Dioxide Level 18 L Anion Gap 25 H Blood Urea Nitrogen 190 H Creatinine 9.20 H Glucose Level 99 Calcium Level 6.1 L Total Bilirubin 2.2 H Direct Bilirubin 1.50 #H Indirect Bilirubin 0.7 Aspartate Amino Transf (AST/SGOT) 31 Alanine Aminotransferase (ALT/SGPT) 37 Alkaline Phosphatase 191 H Total Protein 4.6 L Albumin 2.1 L Globulin 2.50 Albumin/Globulin Ratio 0.84 Test 06/22/16 11:55 06/22/16 13:15 06/22/16 13:33 06/22/16 13:50 Bedside Glucose 131 203 129 Sodium Level 141 Potassium Level 4.1 Chloride Level 106 Carbon Dioxide Level 20 L Anion Gap 19 H Blood Urea Nitrogen 107 #H Creatinine 5.89 #H Glucose Level 185 Calcium Level 7.9 L Test 06/22/16 14:08 06/22/16 14:12 06/22/16 15:12 06/22/16 16:06 Bedside Glucose 192 172 159 166 Medications Medications Current Medications Acetaminophen (Tylenol Supp) [address] PAIN LEVEL 1-3 OR FEVER; Start 06/21/16 at 20:30 Pantoprazole (Protonix Iv) 40 mg BID@06,18 IV Last administered on 06/22/16t 05: 23; Admin Dose 40 MG; Start 06/21/16 at 21:00 Heparin Sodium (Porcine) (Heparin (5000 Units/0.5 ml)) 5,000 unit Q8 SC Last administered on 06/22/16 15:07; Admin Dose 5,000 UNIT; Start 06/21/16 at 22:00 Dextrose (D50w Syringe) 50 ml Q15M PRN IV For BS 50 or less; Start 06/21/16 at 23:30 Dextrose (D50w Syringe) 25 ml Q15M PRN IV BS between 50-70 Last administered on 06/22/16 08:13; Admin Dose 25 ML; Start 06/21/16 at 23:30 Diagnostic Test (Pha) 1 ea 1 ea Q1H XX Last administered on 06/22/16 13:30; Admin Dose 1 EA; Start 06/21/16 at 23:30 Propofol 100 ml @ 2.045 mls/ hr Q12H IV Last administered on 06/22/16 03:53; Admin Dose 2.045 MLS/HR; Start 06/21/16 at 23:30 Norepinephrine 16 mg/Dextrose 500 ml @ 1.87 mls/hr TITRATE IV ; Start 06/21/16 at 23:45 Dextrose/Sodium Chloride 1,000 ml @ 50 mls/hr Q20H IV Last administered on 06/22 03:53; Admin Dose 50 MLS/HR; Start 06/22/16 at 02:30 Piperacillin Sod/ Tazobactam Sod (Zosyn 2.25gm/ 50ml (Pmx)) 50 ml @ 100 mls/hr Q12 IVPB Last administered on 06/22/16 09:55; Admin Dose 100 MLS/HR; Start 06/22 at 04:00 Eye Lubricant 2 drop 2 drop QID BOTH EYES Last administered on 06/22/16 15:06; Admin Dose 2 DROP; Start 06/22/16 at 13:00 Amiodarone HCl 900 mg/Dextrose 500 ml @ 0 mls/hr Q0M IV Last administered on 13:00; Admin Dose 33.4 MLS/HR; Start 06/22/16 at 12:30; Stop 06/23/16 at 12 :29 Sodium Bicarbonate/ Dextrose/Sodium Chloride (Na Bicarb/D5-1/ 2ns) 1,000 ml @ 50 mls/hr Q20H IV Last administered on 06/22/16 13:02; Admin Dose 50 MLS/HR; Start 06/22/16 at 12:35 RADHA SPRINGER MD June 22, 2016 16:29
[2016-06-22 16:44] LABS: POTASSIUM 4.6 mmol/L (3.5-5.1)
[2016-06-22 16:46] LABS: CREATININE 6.52 mg/dl (0.61-1.24)
[2016-06-22 16:47] LABS: CALCIUM 7.3 mg/dl (8.4-10.2)
[2016-06-22] MEDS ORDERED: PHENYLephrine 80 MG in DEXTROSE 5% 242 ML IV SCH (18:00)
[2016-06-22 19:12] LABS: POTASSIUM 4.8 mmol/L (3.5-5.1)
[2016-06-22 19:14] LABS: CREATININE 6.78 mg/dl (0.61-1.24)
[2016-06-22 19:15] LABS: CALCIUM 7.1 mg/dl (8.4-10.2)
--- NOTE | 2016-06-22 19:22 | CONS ---
DATE OF ADMISSION: 06/21/2016 DATE OF CONSULTATION: 06/22/2016 TYPE OF CONSULTATION: Infectious disease. REASON FOR CONSULTATION: Antibiotic management. HISTORY OF PRESENT ILLNESS: Ashley Mullen is an unfortunate 85-year-old [place] male who comes in wit h severe DKA and is being seen for antibiotic management. His past problems include: 1. Hypertension. 2. Prediabetes. 3. History of hip surgery in 2016. The patient was referred to cardiology for further evaluation. The patient was brought in by parame dics at [facility] because of altered level of consciousness. He was found down for an unk nown length of time. Family states patient is normally alert and responsive. Today on admission he was altered and confused. Patient has a history of hip surgery. He was using a walker and wheelch air. On admission chest x-ray was negative, but he was hyperkalemic at 8.6 with a bicarbonate level of 6, BUN of 240, creatinine of 14.07. Blood sugar was 450, but the family states that he was just prediabetic according to them. The patient was intubated, had a Chauncey catheter placed by [facility] radiology. Patient is nonverbal. HOSPITAL COURSE: The patient had dialysis today and had a cardiac arrest at that time, he was resus citated with return of spontaneous circulation. He is intubated. He has cardiac pressors to [place] in his blood pressure. HOSPITAL COURSE: The patient's PMD spoke to the family. A central line was placed in the right sub clavian vein. He has gram-negative rods in his blood and his urine. Chest x-ray has cardiomegaly, NG tube with distal end in the expected location in the stomach. He has a right-sided central line with tip in the distal superior vena cava. Diffuse mild interstitial prominence in both lungs. He is intubated, stable retrocardiac opacities that may reflect left lower lobe atelectasis or infiltra te with small left pleural effusion. The patient's white count today is 41.3, H and H 12.8 and 35.3 , platelet count of 136,000. BUN and creatinine are 107/5.89. His urine is as previously outlined. It was turbid, 3+ leukocyte esterase, greater than 200 white cells per high-power field. Patient i s currently on amiodarone but currently is on Zosyn and I believe Levaquin. The patient is on Zosyn at this point, he had an inserted non-tunneled catheter on 06/21/2016. His right hip open reductio n internal fixation with a lateral plate compression screw, right common femoral vein. temporary timmy lysis catheter. Renal ultrasound, Zamorano catheter is in place. Small amount of pelvic ascites. PAST MEDICAL HISTORY: Operations as outlined. FAMILY HISTORY: Noncontributory. SOCIAL HISTORY: Does not smoke, drink or abuse drugs. ALLERGIES: NONE TO PENICILLIN, SULFA OR FOODS. MEDICATIONS: Per chart. REVIEW OF SYSTEMS: As per HPI. PHYSICAL EXAMINATION: GENERAL: The patient is an elderly appearing [place] male who is awake, intubated on a respirator. He has Chauncey catheter. He has an NG tube, Zamorano catheter, central line. SKIN: Without generalized rash. HEENT: Within normal limits. NECK: Supple. LYMPH NODES: None palpable. CHEST: Decreased breath sounds at the bases. HEART: Without murmur or gallop. ABDOMEN: Soft, nontender, without organosplenomegaly or masses. EXTREMITIES: Without cyanosis, clubbing, or edema. RECTAL AND GENITAL: Deferred. NEUROLOGIC: The patient is intubated on a respirator with propofol. Zamorano catheter with yellow pus in the urine. CT scan of the brain shows normal burger/white matter di fferentiation. There is no evidence of atrophy. Decreased attenuation of the periventricular white m atter consistent with microangiopathic ischemic changes, atrophy, atherosclerosis, suboptimal images due to patient motion. No intracranial hemorrhage. Otherwise, unremarkable noncontrast CT scan of the brain. As noted, his white count today is 41.3. We will see what happens with regards to his cardiac arrest and he is made a DNR. We will continue him on current antibiotic therapy. Dictated By: TAMMY FIELD MD, JD/ASH Conf#: [id number] DID#: [id number]
[2016-06-22] MEDS ORDERED: PROPOFOL 100 ML IV STA (19:55)
[2016-06-22] MEDS: NORepinephrine 32 MG in DEXTROSE 5% 218 ML IV SCH (22:07)
[2016-06-22 22:24] LABS: CREATININE 6.88 mg/dl (0.61-1.24)
[2016-06-22 22:25] LABS: CALCIUM 6.7 mg/dl (8.4-10.2)
[2016-06-23] VITALS (101 sets, daily range): BP systolic 94–179; BP diastolic 33–70; PULSE 83–100; RESP 21–36
[2016-06-23] MEDS: INSULIN HUMAN REGULAR 100 UNIT in SOD CHLORIDE 0.9% 99 ML IV SCH (00:12)
[2016-06-23] MEDS: ACCU-CHEK XX SCH ×24 (00:18→23:30)
[2016-06-23 02:37] LABS: POTASSIUM 5.6 mmol/L (3.5-5.1)
[2016-06-23 02:41] LABS: CALCIUM 6.7 mg/dl (8.4-10.2)
[2016-06-23 02:57] LABS: CREATININE 6.35 mg/dl (0.61-1.24)
[2016-06-23] MEDS: PANTOPRAZOLE 40 MG INJ IV SCH (06:00)
[2016-06-23] MEDS: HEPARIN 5,000 UNIT/0.5 ML VIAL SC SCH ×3 (06:05→22:00)
[2016-06-23 06:44] LABS: ADD SCAN DIFF NO
[2016-06-23 06:51] LABS: ABNORMAL IP MESSAGE 1; HEMATOCRIT 24.9 % (42.0-52.0); MEAN CORPUSCULAR HEMOGLOBIN 30.6 pg (29.0-33.0); MEAN CORPUSCULAR VOLUME 80.3 fl (82.0-101.0); PLATELET COUNT 89 10^3/UL (140-415); RED CELL DISTRIBUTION WIDTH 13.9 % (11.5-14.5); WHITE BLOOD COUNT 30.3 10^3/ul (4.8-10.8)
[2016-06-23 07:03] LABS: HEMOGLOBIN 9.5 g/dl (14.0-18.0); MEAN CORPUSCULAR HGB CONC 38.2 g/dl (32.0-37.0)
[2016-06-23 07:22] LABS: MAGNESIUM 2.4 mg/dl (1.7-2.5); PHOSPHORUS 5.4 mg/dl (2.5-4.9)
[2016-06-23 07:38] LABS: CALCIUM 6.9 mg/dl (8.4-10.2)
[2016-06-23 07:49] LABS: CREATININE 6.67 mg/dl (0.61-1.24)
--- NOTE | 2016-06-23 08:02 | RADRPT ---
PROCEDURE: XR Chest. CLINICAL INDICATION: Respiratory failure TECHNIQUE: An AP view of the chest was obtained. COMPARISON: Chest x-ray dated 06/22/2016 FINDINGS: The endotracheal tube tip is approximately 1.8 cm above the mikhail. The tip of the enteric tube pr ojects over the left upper quadrant. There is a right subclavian central venous catheter with tip in the lower SVC. There are ill-defined bilateral interstitial opacities with small left pleural effusion. No pneumoth orax is seen. The cardiomediastinal silhouette is upper limits of normal in size. Calcifications ar e seen within the aortic arch. The osseous structures demonstrate senescent changes. IMPRESSION: 1. Ill-defined bilateral interstitial opacities, suggesting interstitial edema, improved when saad red to the prior examination. 2. Small left pleural effusion, not significantly changed. 3. Aortic atherosclerosis. 4. Tubes and lines, as described above. RPTAT: HH .Adelaida Dinero MD, MD Date Time Electronically viewed and signed by .Adelaida Dinero MD, on 06/23/2016 08:01 .Gabriel/
[2016-06-23 08:21] LABS: AADO2 Arterial 192.5 mmHg (7.0-24.0); Allen Test ACCEPTAB; Arterial Base Excess -0.2 mmol/L (-3.0-3); Arterial COHb 0.3 % (0.0-3.0); Arterial Fraction of Oxyhgb 92.4 % (93.0-99.0); Arterial HCO3 21.1 mmol/L (22.0-26.0); Arterial MetHb 0.3 % (0.0-1.5); Arterial Total Hemglobin 9.6 g/dl (12.0-18.0); Blood Gas Low PEEP Setting 0 cmH2O; MODE VENT - AC
[2016-06-23] MEDS: SODIUM BICARBONATE (IV ADD) 100 MEQ in DEXTROSE 5%-0.45% NACL 900 ML IV SCH ×2 (08:35→10:30)
[2016-06-23] MEDS: PIPER-TAZO 2.25 GM (PMX) 50 ML IVPB SCH (08:53)
[2016-06-23] MEDS: ARTIFICIAL TEARS 15 ML OPH BOTH EYES SCH ×4 (08:53→21:15)
--- NOTE | 2016-06-23 11:26 | CONS ---
Date/Time of Note Date/Time of Note DATE: 06/23/16 TIME: 11:22 Assessment/Plan Assessment/Plan Additional Assessment/Plan 1. Acute hyperkalemia, potassium 8.1 on admission, started emegently on HD during this admission 2. Severe metabolic acidosis with a bicarbonate level of 6 on admission, s/p HDx 2 days, currently on bicarbonate drip, HCo3 stable today 3. Acute uremic encephalopathy with a BUN of more than 240.- now down to 120 4. Hyponatremia with a sodium of 126, likely secondary to uncontrolled hyperglycemia. 5. Hypoalbuminemia with albumin 2.6 and the patient has a 4+ proteinuria on urinalysis concerned about proteinuric CKD that has been undiagnosed. 6. Altered mental status secondary to acute uremic encephalopathy. 7. Acute urinary tract infection with Urine cx growing ESBL E.coli 8. History of hypertension. 9. History of prediabetes as per the family, no significant history of diabetes or any diabetic nephropathy as per the family. PLAN: HBA1c 8.6- c/w with previous uncontrolled Hyeprglycemia Uric acid high Amiodarone drip for atrial fibrillation- now rate controlled pt is made DNR yesterday, family wants to continue Agressive ventilaor care and HD this time until they talk with other family memebrs pt more stable today, no Plan for HD today, decreased IVF with one bicarbonate drip HD tomorrow after my round IV abx for ESBL Ecoli UTI, ID following Flush mendoza catheter with 300 cc NS x 2 will follow up Consultation Date/Type/Reason Admit Date/Time June 21, 2016 at 20:39 Initial Consult Date 06/21/16 Type of Consultation: NEPHROLOGY Referring Provider: STORM MONTANO 24 HR Interval Summary Free Text/Dictation pt more stabel today, on levophed gtt 16, Rate controlled with Amiodarone, Remains intubated, Fio2 down to 40%,BP stable Exam/Review of Systems Vital Signs Vitals Vital Signs Date Time Temp Pulse Resp B/P Pulse Ox O2 Delivery O2 Flow Rate FiO2 06/23/16 09:15 88 24 105/39 96 06/23/16 07:30 98.0 Mechanical Ventilator 06/23/16 05:50 40 06/21/16 16:30 2 Intake and Output 06/22/16 06/22/16 06/23/16 15:00 23:00 07:00 Intake Total 1347.24 ml 1047.45 ml 654.02 ml Output Total 512 ml 8 ml 3 ml Balance 835.24 ml 1039.45 ml 651.02 ml Exam GENERAL: intubated, sedated on ventilator HEENT: ET tube in place NECK: Supple. no LAD . LUNGS: Bibasilar crackles present up to the mid lung zone with expiratory wheezing present. HEART: S1, S2, irregularly irregular . No murmur. ABDOMEN: Soft, nontender, nondistended. Bowel sounds are present. EXTREMITIES: 1 to 2+ pitting edema, no clubbing, no cyanosis. NEUROLOGICAL: sedated on ventilator, not able to assess . Results Result Diagram: 06/23/16 0550 06/23/16 0550 Results 24 hrs Laboratory Tests Test 06/22/16 11:55 06/22/16 13:15 06/22/16 13:33 06/22/16 13:50 Bedside Glucose 131 203 129 Sodium Level 141 Potassium Level 4.1 Chloride Level 106 Carbon Dioxide Level 20 L Anion Gap 19 H Blood Urea Nitrogen 107 #H Creatinine 5.89 #H Glucose Level 185 Calcium Level 7.9 L Test 06/22/16 14:08 06/22/16 14:12 06/22/16 15:12 06/22/16 16:06 Bedside Glucose 192 172 159 166 Test 06/22/16 16:10 06/22/16 17:26 06/22/16 18:00 06/22/16 18:17 Sodium Level 142 142 Potassium Level 4.6 4.8 Chloride Level 103 102 Carbon Dioxide Level 20 L 20 L Anion Gap 24 H 25 H Blood Urea Nitrogen 117 H 118 H Creatinine 6.52 H 6.78 H Glucose Level 200 208 Calcium Level 7.3 L 7.1 L Bedside Glucose 167 194 Test 06/22/16 19:21 06/22/16 20:38 06/22/16 21:53 06/22/16 21:57 Bedside Glucose 191 220 218 Sodium Level 140 Potassium Level 5.0 Chloride Level 102 Carbon Dioxide Level 19 L Anion Gap 24 H Blood Urea Nitrogen 120 H Creatinine 6.88 H Glucose Level 228 H Calcium Level 6.7 L Test 06/22/16 23:03 06/23/16 00:10 06/23/16 01:08 06/23/16 01:40 Bedside Glucose 214 219 199 Sodium Level 141 Potassium Level 5.6 H Chloride Level 102 Carbon Dioxide Level 20 L Anion Gap 25 H Blood Urea Nitrogen 128 H Creatinine 6.35 H Glucose Level 200 Calcium Level 6.7 L Test 06/23/16 02:02 06/23/16 03:03 06/23/16 03:54 06/23/16 04:59 Bedside Glucose 185 139 100 142 Test 06/23/16 05:50 06/23/16 05:59 06/23/16 06:56 06/23/16 07:00 White Blood Count 30.3 #H Red Blood Count 3.10 #L Hemoglobin 9.5 #L Hematocrit 24.9 #L Mean Corpuscular Volume 80.3 L Mean Corpuscular Hemoglobin 30.6 Mean Corpuscular Hemoglobin Concent 38.2 H Red Cell Distribution Width 13.9 Platelet Count 89 #L Mean Platelet Volume Neutrophils % Eosinophils % Neutrophils # Eosinophils # Sodium Level 140 Potassium Level 5.0 Chloride Level 104 Carbon Dioxide Level 22 Anion Gap 19 H Blood Urea Nitrogen 120 H Creatinine 6.67 H Glucose Level 142 # Calcium Level 6.9 L Phosphorus Level 5.4 H Magnesium Level 2.4 Bedside Glucose 122 116 Blood Gas Specimen Source Blood arterial Arterial Blood Date Drawn 06/23/2016 7:30:43 AM Arterial Blood pH (Temp corrected) 7.564 *H Arterial Blood pCO2 (Temp correct) 23.9 L Arterial Blood pO2 (Temp corrected) 65.2 L Arterial Blood HCO3 21.1 L Arterial Blood Base Excess -0.2 Arterial Blood Oxygen Saturation 93.0 L Jack Test ACCEPTAB Arterial Blood Gas Puncture Site Right Radial Arterial Blood Carboxyhemoglobin 0.3 Arterial Blood Methemoglobin 0.3 Blood Gas A-a O2 Differential 192.5 H Oxyhemoglobin Percent 92.4 L Total Hemoglobin 9.6 L Blood Gas Temperature 37.0 Blood Gas Respiration Rate 18.0 Blood Gas Actual Respiration Rate 27 Blood Gas Modality VENT - AC FiO2 40.0 Blood Gas Tidal Volume 550.0 Blood Gas Low PEEP Setting 0 Blood Gas Critical Value Read Back A MELINDA WILKINSON Blood Gas Notified Whom GUERITA Blood Gas Notified Time 06/23/2016 8:21:34 AM Test 06/23/16 08:00 06/23/16 08:51 06/23/16 10:03 06/23/16 11:04 Bedside Glucose 96 96 93 84 Medications Medications Current Medications Acetaminophen (Tylenol Supp) 650 mg Q4H PRN MA PAIN LEVEL 1-3 OR FEVER; Start 06/21/16 at 20:30 Pantoprazole (Protonix Iv) 40 mg BID@06,18 IV Last administered on 06/23/16 06: 00; Admin Dose 40 MG; Start 06/21/16 at 21:00 Heparin Sodium (Porcine) (Heparin (5000 Units/0.5 ml)) 5,000 unit Q8 SC Last administered on 06/23/16 06:05; Admin Dose 5,000 UNIT; Start 06/21/16 at 22:00 Dextrose (D50w Syringe) 50 ml Q15M PRN IV For BS 50 or less; Start 06/21/16 at 23:30 Dextrose 25 ml 25 ml Q15M PRN IV BS between 50-70 Last administered on 08:13; Admin Dose 25 ML; Start 06/21/16 at 23:30 Propofol 100 ml @ 2.045 mls/ hr Q12H IV Last administered on 06/22/16 03:53; Admin Dose 2.045 MLS/HR; Start 06/21/16 at 23:30 Dextrose/Sodium Chloride (D5-1/2ns) 1,000 ml @ 50 mls/hr Q20H IV Last administered on 06/22/16 03:53; Admin Dose 50 MLS/HR; Start 06/22/16 at 02:30 Eye Lubricant 2 drop 2 drop QID BOTH EYES Last administered on 06/23/16 08:53; Admin Dose 2 DROP; Start 06/22/16 at 13:00 Amiodarone HCl 900 mg/Dextrose 500 ml @ 0 mls/hr Q0M IV Last administered on 13:00; Admin Dose 33.4 MLS/HR; Start 06/22/16 at 12:30; Stop 06/23/16 at 12 :29 Sodium Bicarbonate 100 meq/Dextrose/ Sodium Chloride 1,000 ml @ 50 mls/hr Q20H IV Last administered on 06/23/16 10:30; Admin Dose 50 MLS/HR; Start 06/22/16 at 12:35 Norepinephrine 32 mg/Dextrose 250 ml @ 0.46 mls/hr TITRATE IV Last administered on 06/22/16 22:07; Admin Dose 14.06 MLS/HR; Start 06/22/16 at 18:00 Phenylephrine HCl/ Dextrose ([place]-Syneph/D5W) 250 ml @ 18.75 mls/ hr TITRATE IV ; Start 06/22/16 at 18:00 Diagnostic Test (Pha) 1 ea 1 ea Q1H XX Last administered on 06/23/16 10:00; Admin Dose 1 EA; Start 06/22/16 at 22:00 Meropenem (Merrem 500 Mg/ 100 ml (Pmx)) 100 ml @ 200 mls/hr Q24H IVPB ; Start 06/23/16 at 12:00 RADHA SPRINGER MD June 23, 2016 11:26
[2016-06-23 11:27] LABS: LYMPHOCYTES # 1.2 10^3/ul (0.8-2.9); MONOCYTE # 0.6 10^3/ul (0.3-0.9); NEUTROPHIL # 28.5 10^3/ul (1.6-7.5); PLATELET ESTIMATE PLT APPEAR DECREASED
[2016-06-23] MEDS: PROPOFOL 100 ML IV SCH ×2 (11:30→23:30)
--- NOTE | 2016-06-23 11:41 | CONS ---
Date/Time of Note Date/Time of Note DATE: 06/23/16 TIME: 11:36 Assessment/Plan Assessment/Plan Additional Assessment/Plan Ventilator settings; AC of 18, tidal volume 550, PEEP of 0, 40% FiO2. Chest x-ray was reviewed from today which is essentially clear. Assessment recommendations; 1. Patient admitted with acute renal failure with severe hyperkalemia as well as severe metabolic acidosis with severe hyperglycemia as well. All left right abnormalities have been corrected. 2. Sepsis from E. coli with bacteremia as well as UTI. 3. Hypotension, requiring Levophed. 4. Status post dialysis yesterday. 5. Atrial fibrillation, currently in sinus rhythm, amiodarone drip to be weaned off. 6. Patient currently being hyperventilated. 7. Persistent poor mental status likely toxic metabolic encephalopathy. Continue current treatment. Ventilator settings have been adjusted. Sodium bicarb drip has been decreased as well. I did have a very detailed discussion the patient's daughter and son at bedside and answered all their questions. Prognosis remains guarded. 35 minutes of critical care time was spent evaluating the patient. Consultation Date/Type/Reason Admit Date/Time June 21, 2016 at 20:39 Initial Consult Date 06/22/16 Type of Consultation: Pulmonary/critical care Referring Provider: STORM MONTANO 24 HR Interval Summary Free Text/Dictation Patient's condition remains critical. Remains intubated. Patient however not requiring any sedation. Still has poor mental status. Remains hypotensive, requiring Levophed. Patient was dialyzed yesterday. General exam; elderly male, orally intubated, unresponsive. Currently in no distress. Exam/Review of Systems Vital Signs Vitals Vital Signs Date Time Temp Pulse Resp B/P Pulse Ox O2 Delivery O2 Flow Rate FiO2 06/23/16 09:15 88 24 105/39 96 06/23/16 07:30 98.0 Mechanical Ventilator 06/23/16 05:50 40 06/21/16 16:30 2 Intake and Output 06/22/16 06/22/16 06/23/16 15:00 23:00 07:00 Intake Total 1347.24 ml 1047.45 ml 654.02 ml Output Total 512 ml 8 ml 3 ml Balance 835.24 ml 1039.45 ml 651.02 ml Exam HEENT examination; supple neck, no JVD. No lymphadenopathy. Midline trachea. No thyromegaly. Orally intubated. Patient is edentulous. Has bilateral cataracts. Pupils are small bilaterally. No neck bruits. Chest examination; clear to auscultation. S1-S2 audible, no murmurs. Regular rhythm. Abdomen examination; soft, scaphoid. No organomegaly. Bowel sounds audible. Extremity examination; no peripheral edema. 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 Results Result Diagram: 06/23/16 0550 06/23/16 0550 Results 24 hrs Laboratory Tests Test 06/22/16 11:55 06/22/16 13:15 06/22/16 13:33 06/22/16 13:50 Bedside Glucose 131 203 129 Sodium Level 141 Potassium Level 4.1 Chloride Level 106 Carbon Dioxide Level 20 L Anion Gap 19 H Blood Urea Nitrogen 107 #H Creatinine 5.89 #H Glucose Level 185 Calcium Level 7.9 L Test 06/22/16 14:08 06/22/16 14:12 06/22/16 15:12 06/22/16 16:06 Bedside Glucose 192 172 159 166 Test 06/22/16 16:10 06/22/16 17:26 06/22/16 18:00 06/22/16 18:17 Sodium Level 142 142 Potassium Level 4.6 4.8 Chloride Level 103 102 Carbon Dioxide Level 20 L 20 L Anion Gap 24 H 25 H Blood Urea Nitrogen 117 H 118 H Creatinine 6.52 H 6.78 H Glucose Level 200 208 Calcium Level 7.3 L 7.1 L Bedside Glucose 167 194 Test 06/22/16 19:21 06/22/16 20:38 06/22/16 21:53 06/22/16 21:57 Bedside Glucose 191 220 218 Sodium Level 140 Potassium Level 5.0 Chloride Level 102 Carbon Dioxide Level 19 L Anion Gap 24 H Blood Urea Nitrogen 120 H Creatinine 6.88 H Glucose Level 228 H Calcium Level 6.7 L Test 06/22/16 23:03 06/23/16 00:10 06/23/16 01:08 06/23/16 01:40 Bedside Glucose 214 219 199 Sodium Level 141 Potassium Level 5.6 H Chloride Level 102 Carbon Dioxide Level 20 L Anion Gap 25 H Blood Urea Nitrogen 128 H Creatinine 6.35 H Glucose Level 200 Calcium Level 6.7 L Test 06/23/16 02:02 06/23/16 03:03 06/23/16 03:54 06/23/16 04:59 Bedside Glucose 185 139 100 142 Test 06/23/16 05:50 06/23/16 05:59 06/23/16 06:56 06/23/16 07:00 White Blood Count 30.3 #H Red Blood Count 3.10 #L Hemoglobin 9.5 #L Hematocrit 24.9 #L Mean Corpuscular Volume 80.3 L Mean Corpuscular Hemoglobin 30.6 Mean Corpuscular Hemoglobin Concent 38.2 H Red Cell Distribution Width 13.9 Platelet Count 89 #L Mean Platelet Volume Neutrophils % 94.0 H Lymphocytes % 4.0 L Monocytes % 2.0 Eosinophils % Neutrophils # 28.5 H Lymphocytes # 1.2 Monocytes # 0.6 Eosinophils # Platelet Estimate PLT APPEAR DECREASED Sodium Level 140 Potassium Level 5.0 Chloride Level 104 Carbon Dioxide Level 22 Anion Gap 19 H Blood Urea Nitrogen 120 H Creatinine 6.67 H Glucose Level 142 # Calcium Level 6.9 L Phosphorus Level 5.4 H Magnesium Level 2.4 Bedside Glucose 122 116 Blood Gas Specimen Source Blood arterial Arterial Blood Date Drawn 06/23/2016 7:30:43 AM Arterial Blood pH (Temp corrected) 7.564 *H Arterial Blood pCO2 (Temp correct) 23.9 L Arterial Blood pO2 (Temp corrected) 65.2 L Arterial Blood HCO3 21.1 L Arterial Blood Base Excess -0.2 Arterial Blood Oxygen Saturation 93.0 L Jack Test ACCEPTAB Arterial Blood Gas Puncture Site Right Radial Arterial Blood Carboxyhemoglobin 0.3 Arterial Blood Methemoglobin 0.3 Blood Gas A-a O2 Differential 192.5 H Oxyhemoglobin Percent 92.4 L Total Hemoglobin 9.6 L Blood Gas Temperature 37.0 Blood Gas Respiration Rate 18.0 Blood Gas Actual Respiration Rate 27 Blood Gas Modality VENT - AC FiO2 40.0 Blood Gas Tidal Volume 550.0 Blood Gas Low PEEP Setting 0 Blood Gas Critical Value Read Back A MELINDA WILKINSON Blood Gas Notified Whom GUERITA Blood Gas Notified Time 06/23/2016 8:21:34 AM Test 06/23/16 08:00 06/23/16 08:51 06/23/16 10:03 06/23/16 11:04 Bedside Glucose 96 96 93 84 Medications Medications Current Medications Acetaminophen (Tylenol Supp) 650 mg Q4H PRN [place] PAIN LEVEL 1-3 OR FEVER; Start 06/21/16 at 20:30 Pantoprazole (Protonix Iv) 40 mg BID@06,18 IV Last administered on 06/23/16 06: 00; Admin Dose 40 MG; Start 06/21/16 at 21:00 Heparin Sodium (Porcine) (Heparin (5000 Units/0.5 ml)) 5,000 unit Q8 SC Last administered on 06/23/16 06:05; Admin Dose 5,000 UNIT; Start 06/21/16 at 22:00 Dextrose (D50w Syringe) 50 ml Q15M PRN IV For BS 50 or less; Start 06/21/16 at 23:30 Dextrose 25 ml 25 ml Q15M PRN IV BS between 50-70 Last administered on 08:13; Admin Dose 25 ML; Start 06/21/16 at 23:30 Propofol (Diprivan) 100 ml @ 2.045 mls/ hr Q12H IV Last administered on 03:53; Admin Dose 2.045 MLS/HR; Start 06/21/16 at 23:30 Eye Lubricant 2 drop 2 drop QID BOTH EYES Last administered on 06/23/16 08:53; Admin Dose 2 DROP; Start 06/22/16 at 13:00 Amiodarone HCl 900 mg/Dextrose 500 ml @ 0 mls/hr Q0M IV Last administered on 13:00; Admin Dose 33.4 MLS/HR; Start 06/22/16 at 12:30; Stop 06/23/16 at 12 :29 Norepinephrine 32 mg/Dextrose 250 ml @ 0.46 mls/hr TITRATE IV Last administered on 06/22/16 22:07; Admin Dose 14.06 MLS/HR; Start 06/22/16 at 18:00 Phenylephrine HCl/ Dextrose (Victor Hugo-Syneph/D5W) 250 ml @ 18.75 mls/ hr TITRATE IV ; Start 06/22/16 at 18:00 Diagnostic Test (Pha) 1 ea 1 ea Q1H XX Last administered on 06/23/16 10:00; Admin Dose 1 EA; Start 06/22/16 at 22:00 Meropenem 100 ml @ 200 mls/hr Q24H IVPB ; Start 06/23/16 at 12:00 Sodium Bicarbonate/ Dextrose/Sodium Chloride (Na Bicarb/D5-1/ 2ns) 1,000 ml @ 50 mls/hr Q20H IV ; Start 06/23/16 at 13:00 MARK WARD June 23, 2016 11:41
[2016-06-23] MEDS: MEROPENEM 500 MG/100 ML (PMX) 100 ML IVPB SCH (12:00)
--- NOTE | 2016-06-23 12:47 | PN ---
Date/Time of Note Date/Time of Note DATE: 06/23/16 TIME: 12:29 Assessment/Plan VTE Prophylaxis VTE Prophylaxis Intervention: heparin Assessment/Plan Chief Complaint/Hosp Course #1 acute respiratory failure secondary to acute encephalopathy from sepsis and/ or DKA and/or Uremia -cont vent support -cont HD and Abx -Pulmonology consult appreciated #2 Septic Shock from UTI with acute encephalopathy -cont Abx -Urine and Blood Cx's show ESBL E Coli -ID Consult appreciated, cont Meropenem #3 Acute renal failure with hyperkalemia and Uremia requiring emergent dialysis -cont HD -baseline Cr unknown at this time #4 Cardiac arrest 2/2 above with ROSC -pt now a DNR after discussion with family #5 hyponatremia: resolved #6 DKA-A1C at 8.3 -cont Insulin gtt, AG still elevated #7 SVT -cont Amio #8 history of hypertension -currently on pressors DVT and GI prophylaxis: Heparin subcu, Protonix IV Problems: Subjective 24 Hr Interval Summary Subjective hx not possible: pt non-verbal Exam/Review of Systems Vital Signs Vitals Vital Signs Date Time Temp Pulse Resp B/P Pulse Ox O2 Delivery O2 Flow Rate FiO2 06/23/16 09:15 88 24 105/39 96 06/23/16 07:30 98.0 Mechanical Ventilator 06/23/16 05:50 40 06/21/16 16:30 2 Intake and Output 06/22/16 06/22/16 06/23/16 15:00 23:00 07:00 Intake Total 1347.24 ml 1047.45 ml 654.02 ml Output Total 512 ml 8 ml 3 ml Balance 835.24 ml 1039.45 ml 651.02 ml Exam Constitutional: non-verbal ENMT: intubated Respiratory: clear to auscultation Cardiovascular: regular rate and rhythm Gastrointestinal: soft, No distended Musculoskeletal: nl extremities to inspection Results Result Diagram: 06/23/16 0550 06/23/16 0550 Results 24 hrs Laboratory Tests Test 06/22/16 13:15 06/22/16 13:33 06/22/16 13:50 06/22/16 14:08 Bedside Glucose 203 129 192 Sodium Level 141 Potassium Level 4.1 Chloride Level 106 Carbon Dioxide Level 20 L Anion Gap 19 H Blood Urea Nitrogen 107 #H Creatinine 5.89 #H Glucose Level 185 Calcium Level 7.9 L Test 06/22/16 14:12 06/22/16 15:12 06/22/16 16:06 06/22/16 16:10 Bedside Glucose 172 159 166 Sodium Level 142 Potassium Level 4.6 Chloride Level 103 Carbon Dioxide Level 20 L Anion Gap 24 H Blood Urea Nitrogen 117 H Creatinine 6.52 H Glucose Level 200 Calcium Level 7.3 L Test 06/22/16 17:26 06/22/16 18:00 06/22/16 18:17 06/22/16 19:21 Bedside Glucose 167 194 191 Sodium Level 142 Potassium Level 4.8 Chloride Level 102 Carbon Dioxide Level 20 L Anion Gap 25 H Blood Urea Nitrogen 118 H Creatinine 6.78 H Glucose Level 208 Calcium Level 7.1 L Test 06/22/16 20:38 06/22/16 21:53 06/22/16 21:57 06/22/16 23:03 Bedside Glucose 220 218 214 Sodium Level 140 Potassium Level 5.0 Chloride Level 102 Carbon Dioxide Level 19 L Anion Gap 24 H Blood Urea Nitrogen 120 H Creatinine 6.88 H Glucose Level 228 H Calcium Level 6.7 L Test 06/23/16 00:10 06/23/16 01:08 06/23/16 01:40 06/23/16 02:02 Bedside Glucose 219 199 185 Sodium Level 141 Potassium Level 5.6 H Chloride Level 102 Carbon Dioxide Level 20 L Anion Gap 25 H Blood Urea Nitrogen 128 H Creatinine 6.35 H Glucose Level 200 Calcium Level 6.7 L Test 06/23/16 03:03 06/23/16 03:54 06/23/16 04:59 06/23/16 05:50 Bedside Glucose 139 100 142 White Blood Count 30.3 #H Red Blood Count 3.10 #L Hemoglobin 9.5 #L Hematocrit 24.9 #L Mean Corpuscular Volume 80.3 L Mean Corpuscular Hemoglobin 30.6 Mean Corpuscular Hemoglobin Concent 38.2 H Red Cell Distribution Width 13.9 Platelet Count 89 #L Mean Platelet Volume Neutrophils % 94.0 H Lymphocytes % 4.0 L Monocytes % 2.0 Eosinophils % Neutrophils # 28.5 H Lymphocytes # 1.2 Monocytes # 0.6 Eosinophils # Platelet Estimate PLT APPEAR DECREASED Sodium Level 140 Potassium Level 5.0 Chloride Level 104 Carbon Dioxide Level 22 Anion Gap 19 H Blood Urea Nitrogen 120 H Creatinine 6.67 H Glucose Level 142 # Calcium Level 6.9 L Phosphorus Level 5.4 H Magnesium Level 2.4 Test 06/23/16 05:59 06/23/16 06:56 06/23/16 07:00 06/23/16 08:00 Bedside Glucose 122 116 96 Blood Gas Specimen Source Blood arterial Arterial Blood Date Drawn 06/23/2016 7:30:43 AM Arterial Blood pH (Temp corrected) 7.564 *H Arterial Blood pCO2 (Temp correct) 23.9 L Arterial Blood pO2 (Temp corrected) 65.2 L Arterial Blood HCO3 21.1 L Arterial Blood Base Excess -0.2 Arterial Blood Oxygen Saturation 93.0 L Jack Test ACCEPTAB Arterial Blood Gas Puncture Site Right Radial Arterial Blood Carboxyhemoglobin 0.3 Arterial Blood Methemoglobin 0.3 Blood Gas A-a O2 Differential 192.5 H Oxyhemoglobin Percent 92.4 L Total Hemoglobin 9.6 L Blood Gas Temperature 37.0 Blood Gas Respiration Rate 18.0 Blood Gas Actual Respiration Rate 27 Blood Gas Modality VENT - AC FiO2 40.0 Blood Gas Tidal Volume 550.0 Blood Gas Low PEEP Setting 0 Blood Gas Critical Value Read Back A MELINDA RN Blood Gas Notified Whom JLD Blood Gas Notified Time 06/23/2016 8:21:34 AM Test 06/23/16 08:51 06/23/16 10:03 06/23/16 11:04 Bedside Glucose 96 93 84 Medications Medications Current Medications Acetaminophen (Tylenol Supp) 650 mg Q4H PRN [place] PAIN LEVEL 1-3 OR FEVER; Start 06/21/16 at 20:30 Pantoprazole (Protonix Iv) 40 mg BID@06,18 IV Last administered on 06/23/16 06: 00; Admin Dose 40 MG; Start 06/21/16 at 21:00 Heparin Sodium (Porcine) (Heparin (5000 Units/0.5 ml)) 5,000 unit Q8 SC Last administered on 06/23/16 06:05; Admin Dose 5,000 UNIT; Start 06/21/16 at 22:00 Dextrose (D50w Syringe) 50 ml Q15M PRN IV For BS 50 or less; Start 06/21/16 at 23:30 Dextrose 25 ml 25 ml Q15M PRN IV BS between 50-70 Last administered on 08:13; Admin Dose 25 ML; Start 06/21/16 at 23:30 Propofol (Diprivan) 100 ml @ 2.045 mls/ hr Q12H IV Last administered on 03:53; Admin Dose 2.045 MLS/HR; Start 06/21/16 at 23:30 Eye Lubricant 2 drop 2 drop QID BOTH EYES Last administered on 06/23/16 08:53; Admin Dose 2 DROP; Start 06/22/16 at 13:00 Amiodarone HCl 900 mg/Dextrose 500 ml @ 0 mls/hr Q0M IV Last administered on 13:00; Admin Dose 33.4 MLS/HR; Start 06/22/16 at 12:30; Stop 06/23/16 at 12 :29 Norepinephrine 32 mg/Dextrose 250 ml @ 0.46 mls/hr TITRATE IV Last administered on 06/22/16 22:07; Admin Dose 14.06 MLS/HR; Start 06/22/16 at 18:00 Phenylephrine HCl/ Dextrose (Victor Hugo-Syneph/D5W) 250 ml @ 18.75 mls/ hr TITRATE IV ; Start 06/22/16 at 18:00 Diagnostic Test (Pha) 1 ea 1 ea Q1H XX Last administered on 06/23/16 10:00; Admin Dose 1 EA; Start 06/22/16 at 22:00 Meropenem 100 ml @ 200 mls/hr Q24H IVPB ; Start 06/23/16 at 12:00 Sodium Bicarbonate/ Dextrose/Sodium Chloride (Na Bicarb/D5-1/ 2ns) 1,000 ml @ 50 mls/hr Q20H IV ; Start 06/23/16 at 13:00 AUDRA MCARTHUR June 23, 2016 12:40
[2016-06-23] MEDS ORDERED: SODIUM BICARBONATE (IV ADD) 50 MEQ in DEXTROSE 5%-0.45% NACL 950 ML IV SCH (13:00)
[2016-06-23 13:08] LABS: CALCIUM 6.9 mg/dl (8.4-10.2); POTASSIUM 4.9 mmol/L (3.5-5.1)
[2016-06-23 13:15] LABS: CREATININE 6.84 mg/dl (0.61-1.24)
--- NOTE | 2016-06-23 13:50 | PN ---
DATE: 06/23/2016 INFECTIOUS DISEASE PROGRESS NOTE SUBJECTIVE: The patient is intubated, sedated, on Levophed and amiodarone drip. No fevers. VITAL SIGNS: Temperature 98, pulse 88, respirations 20, blood pressure 105/39, saturation 96 on 40 FIO2. LABORATORY DATA: WBC 30.3, H and H 9.5 and 24.9, platelets 89, neutrophils 94. INDWELLINGS: Right subclavian triple-lumen catheter, right femoral Chauncey, endotracheal tube, NG t ube, Zamorano catheter. MICROBIOLOGY: Blood culture growing gram-negative rods. Urine culture growing E coli ESBL. DIAGNOSTICS: Chest x-ray this morning revealed ill-defined bilateral interstitial opacities that ar e improved. Renal ultrasound on admission was unremarkable. ANTIMICROBIALS: The patient is on IV Merrem. PHYSICAL EXAMINATION: GENERAL: This is a fragile, elderly man who is in no distress. HEENT: Head atraumatic, normocephalic. Sclerae anicteric. Buccal mucosa dry. NECK: Supple, trachea midline. CHEST: Rise symmetrical. Breath sounds with scattered crackles. HEART: S1, S2. ABDOMEN: Soft, bowel sounds diminished. EXTREMITIES: Without cyanosis. ASSESSMENT: 1. Severe sepsis with shock and multisystem organ failure. 2. Escherichia coli extended-spectrum beta-lactamase urinary tract infection with bacteremia. 3. Acute respiratory failure secondary to fluid overload. 4. Acute kidney injury, possible chronic kidney disease. 5. Acute encephalopathy. 6. Severe metabolic acidosis secondary to above. 7. Status post rapid atrial fibrillation. PLAN: The patient remains hemodynamically unstable. He is on appropriate antimicrobials. He is be ing followed by multiple consultants. Prognosis guarded. He is DNR status. Dictated By: SANAM JIMÉNEZ PRODUCTION FOREMAN for TAMMY FIELD MD NI/NTS Conf#: [id number] DID#: [id number]
[2016-06-23 16:20] LABS: WHITE BLOOD COUNT 41.3 10^3/ul (4.8-10.8)
[2016-06-23] MEDS: DEXTROSE 50% 50 ML SYRINGE IV PRN (17:09)
[2016-06-23] MEDS: SODIUM BICARBONATE (IV ADD) 50 MEQ in DEXTROSE 5%-0.45% NACL 950 ML IV SCH (19:03)
[2016-06-23 19:34] LABS: CALCIUM 6.9 mg/dl (8.4-10.2); POTASSIUM 5.5 mmol/L (3.5-5.1)
[2016-06-23 19:48] LABS: CREATININE 7.01 mg/dl (0.61-1.24)
[2016-06-24] VITALS (98 sets, daily range): BP systolic 86–163; BP diastolic 36–65; PULSE 81–126; RESP 17–33
[2016-06-24] MEDS: ACCU-CHEK XX SCH ×24 (00:43→23:06)
[2016-06-24] MEDS: NORepinephrine 32 MG in DEXTROSE 5% 218 ML IV SCH (02:40)
[2016-06-24 05:22] LABS: ADD SCAN DIFF NO
[2016-06-24 05:27] LABS: ABNORMAL IP MESSAGE 1; HEMATOCRIT 24.2 % (42.0-52.0); MEAN CORPUSCULAR HEMOGLOBIN 29.8 pg (29.0-33.0); MEAN CORPUSCULAR HGB CONC 37.2 g/dl (32.0-37.0); MEAN CORPUSCULAR VOLUME 80.1 fl (82.0-101.0); MEAN PLATELET VOLUME 13.9 fl (7.4-10.4); PLATELET COUNT 107 10^3/UL (140-415); RED BLOOD COUNT 3.02 10^6/ul (4.70-6.10); WHITE BLOOD COUNT 34.8 10^3/ul (4.8-10.8)
[2016-06-24 05:46] LABS: POTASSIUM 4.8 mmol/L (3.5-5.1)
[2016-06-24 05:50] LABS: CALCIUM 7.1 mg/dl (8.4-10.2); MAGNESIUM 2.4 mg/dl (1.7-2.5)
[2016-06-24 05:57] LABS: CREATININE 7.29 mg/dl (0.61-1.24)
[2016-06-24] MEDS: HEPARIN 5,000 UNIT/0.5 ML VIAL SC SCH (06:00)
[2016-06-24] MEDS: PANTOPRAZOLE 40 MG INJ IV SCH (06:39)
[2016-06-24] MEDS: ARTIFICIAL TEARS 15 ML OPH BOTH EYES SCH ×4 (07:55→21:01)
[2016-06-24] MEDS: INSULIN HUMAN REGULAR 100 UNIT in SOD CHLORIDE 0.9% 99 ML IV SCH (08:00)
--- NOTE | 2016-06-24 09:50 | CONS ---
Date/Time of Note Date/Time of Note DATE: 06/24/16 TIME: 09:47 Assessment/Plan Assessment/Plan Additional Assessment/Plan Ventilator settings; AC of 14, tidal volume 500, PEEP of 5, 40% FiO2. Patient is on Levophed at 8 mics per minute, insulin drip at 1 U/h. Assessment recommendations; 1. Patient admitted with altered mental status due to acute renal failure and severe hyperkalemia and metabolic acidosis with marked interval improvement in electrolyte imbalance, however patient remains with very poor mental status. Likely indicative of ongoing toxic metabolic encephalopathy. 2. Severe UTI with sepsis. 3. Diabetes., Currently maintained on insulin drip. 4. Ongoing need for hemodialysis. Continue current supportive care. Prognosis remains poor. 35 minutes of critical care time was spent evaluating the patient. Consultation Date/Type/Reason Admit Date/Time June 21, 2016 at 20:39 Initial Consult Date 06/22/16 Type of Consultation: Pulmonary/critical care Referring Provider: STORM MONTANO 24 HR Interval Summary Free Text/Dictation Patient condition remains critical. Remains essentially unresponsive. Has not required any sedation. General exam; elderly male, orally intubated, currently unresponsive and in no distress. Exam/Review of Systems Vital Signs Vitals Vital Signs Date Time Temp Pulse Resp B/P Pulse Ox O2 Delivery O2 Flow Rate FiO2 06/24/16 08:00 90 26 116/48 100 06/24/16 07:15 98.8 Mechanical Ventilator 06/24/16 05:09 40 06/21/16 16:30 2 Intake and Output 06/23/16 06/23/16 06/24/16 15:00 23:00 07:00 Intake Total 360.5 ml 851.01 ml 698.82 ml Output Total 270 ml 380 ml 500 ml Balance 90.5 ml 471.01 ml 198.82 ml Exam HEENT exam is; supple neck, no JVD. No lymphadenopathy. Midline trachea. No thyromegaly. Orally intubated. Edentulous. Pupils are small bilaterally. Chest examination; clear to auscultation. S1-S2 audible, no murmurs. Regular rhythm. Abdomen examination; soft, nondistended, no organomegaly. Bowel sounds audible. Extremity examination; no peripheral edema. [employer]OWER examination; patient remains unresponsive. Results Result Diagram: 06/24/160 06/24/16449 Results 24 hrs Laboratory Tests Test 06/23/16 10:03 06/23/16 11:04 06/23/16 12:00 06/23/16 13:15 Bedside Glucose 93 84 99 Sodium Level 140 Potassium Level 4.9 Chloride Level 104 Carbon Dioxide Level 25 Anion Gap 16 Blood Urea Nitrogen 127 H Creatinine 6.84 H Glucose Level 92 # Calcium Level 6.9 L Test 06/23/16 15:13 06/23/16 15:47 06/23/16 17:03 06/23/16 17:36 Bedside Glucose 105 101 68 L 220 Test 06/23/16 17:59 06/23/16 18:46 06/23/16 18:55 06/23/16 19:54 Bedside Glucose 187 179 173 Sodium Level 138 Potassium Level 5.5 H Chloride Level 102 Carbon Dioxide Level 25 Anion Gap 17 H Blood Urea Nitrogen 132 H Creatinine 7.01 H Glucose Level 222 #H Calcium Level 6.9 L Test 06/23/16 21:12 06/23/16 22:03 06/23/16 23:03 06/24/16 00:15 Bedside Glucose 215 223 H 212 183 Test 06/24/16 01:03 06/24/16 02:04 06/24/16 03:01 06/24/16 04:11 Bedside Glucose 187 176 150 140 Test 06/24/16 04:50 06/24/16 04:58 06/24/16 06:02 06/24/16 07:03 White Blood Count 34.8 H Red Blood Count 3.02 L Hemoglobin 9.0 L Hematocrit 24.2 L Mean Corpuscular Volume 80.1 L Mean Corpuscular Hemoglobin 29.8 Mean Corpuscular Hemoglobin Concent 37.2 H Red Cell Distribution Width 14.0 Platelet Count 107 #L Mean Platelet Volume 13.9 H Neutrophils % Eosinophils % Neutrophils # Eosinophils # Sodium Level 143 Potassium Level 4.8 Chloride Level 102 Carbon Dioxide Level 25 Anion Gap 21 H Blood Urea Nitrogen 140 H Creatinine 7.29 H Glucose Level 127 # Calcium Level 7.1 L Magnesium Level 2.4 Bedside Glucose 131 138 106 Test 06/24/16 07:56 06/24/16 09:11 Bedside Glucose 113 127 Medications Medications Current Medications Acetaminophen (Tylenol Supp) 650 mg Q4H PRN [place] PAIN LEVEL 1-3 OR FEVER; Start 06/21/16 at 20:30 Heparin Sodium (Porcine) (Heparin (5000 Units/0.5 ml)) 5,000 unit Q8 SC Last administered on 06/23/16 06:05; Admin Dose 5,000 UNIT; Start 06/21/16 at 22:00 Dextrose (D50w Syringe) 50 ml Q15M PRN IV For BS 50 or less; Start 06/21/16 at 23:30 Dextrose 25 ml 25 ml Q15M PRN IV BS between 50-70 Last administered on 17:09; Admin Dose 25 ML; Start 06/21/16 at 23:30 Propofol (Diprivan) 100 ml @ 2.045 mls/ hr Q12H IV Last administered on 03:53; Admin Dose 2.045 MLS/HR; Start 06/21/16 at 23:30 Eye Lubricant 2 drop 2 drop QID BOTH EYES Last administered on 06/24/16 07:55 ; Admin Dose 2 DROP; Start 06/22/16 at 13:00 Norepinephrine 32 mg/Dextrose 250 ml @ 0.46 mls/hr TITRATE IV Last administered on 06/24/16 02:40; Admin Dose 4.65 MLS/HR; Start 06/22/16 at 18:00 Phenylephrine HCl/ Dextrose (Victor Hugo-Syneph/D5W) 250 ml @ 18.75 mls/ hr TITRATE IV ; Start 06/22/16 at 18:00 Diagnostic Test (Pha) 1 ea 1 ea Q1H XX Last administered on 06/24/16 09:19; Admin Dose 1 EA; Start 06/22/16 at 22:00 Meropenem (Merrem 500 Mg/ 100 ml (Pmx)) 100 ml @ 200 mls/hr Q24H IVPB Last administered on 06/23/16 12:00; Admin Dose 200 MLS/HR; Start 06/23/16 at 12:00 Pantoprazole 40 mg 40 mg DAILY@06 IV Last administered on 06/24/16 06:39; Admin Dose 40 MG; Start 06/24/16 at 06:00 Sodium Bicarbonate/ Dextrose/Sodium Chloride (Na Bicarb/D5-1/ 2ns) 1,000 ml @ 50 mls/hr Q20H IV Last administered on 06/23/16 19:03; Admin Dose 50 MLS/HR; Start 06/23/16 at 14:30 MARK WARD June 24, 2016 09:49
[2016-06-24 11:21] LABS: LYMPHOCYTES # 1.7 10^3/ul (0.8-2.9); MONOCYTE # 0.3 10^3/ul (0.3-0.9); NEUTROPHIL # 32.7 10^3/ul (1.6-7.5)
[2016-06-24 11:22] LABS: BURR CELLS 1+
--- NOTE | 2016-06-24 11:37 | CONS ---
Date/Time of Note Date/Time of Note DATE: 06/24/16 TIME: 11:25 Assessment/Plan Assessment/Plan Additional Assessment/Plan 1. Acute hyperkalemia, potassium 8.1 on admission, started emegently on HD during this admission 2. Severe metabolic acidosis with a bicarbonate level of 6 on admission, s/p HDx 2 days, currently on bicarbonate drip, HCo3 stable today 3. Acute uremic encephalopathy with a BUN of more than 240.- now down to 120 4. Hyponatremia with a sodium of 126, likely secondary to uncontrolled hyperglycemia. 5. Hypoalbuminemia with albumin 2.6 and the patient has a 4+ proteinuria on urinalysis concerned about proteinuric CKD that has been undiagnosed. 6. Altered mental status secondary to acute uremic encephalopathy. 7. Acute urinary tract infection with Urine cx growing ESBL E.coli 8. History of hypertension. 9. History of prediabetes as per the family, no significant history of diabetes or any diabetic nephropathy as per the family. PLAN: Plan for HD today with low BF and Low Dialysate flow Amiodarone drip for atrial fibrillation- now rate controlled , continue IV bicarbonate drip pt is made DNR, family wants to continue Agressive ventilaor care and HD this time until they talk with other family memebrs pt more stable today IV abx for ESBL Ecoli UTI, ID following Flush mendoza catheter with 300 cc NS x 2 - still having bloody output, will need Urology consult for it will follow up Consultation Date/Type/Reason Admit Date/Time June 21, 2016 at 20:39 Initial Consult Date 06/21/16 Type of Consultation: Pulmonary/critical care Referring Provider: STORM MONTANO 24 HR Interval Summary Free Text/Dictation pt remains intubated, Mendoza catheter has been flushed multiple times with bloody output, on Fio2 40%, Bicarbonate drip with 1 ampoule of NaHCO3 Exam/Review of Systems Vital Signs Vitals Vital Signs Date Time Temp Pulse Resp B/P Pulse Ox O2 Delivery O2 Flow Rate FiO2 06/24/16 11:15 88 25 120/57 100 06/24/16 07:15 98.8 Mechanical Ventilator 06/24/16 05:09 40 06/21/16 16:30 2 Intake and Output 06/23/16 06/23/16 06/24/16 15:00 23:00 07:00 Intake Total 360.5 ml 851.01 ml 698.82 ml Output Total 270 ml 380 ml 500 ml Balance 90.5 ml 471.01 ml 198.82 ml Exam GENERAL: intubated, sedated on ventilator HEENT: ET tube in place NECK: Supple. no LAD . LUNGS: Bibasilar crackles present up to the mid lung zone with expiratory wheezing present. HEART: S1, S2, irregularly irregular . No murmur. ABDOMEN: Soft, nontender, nondistended. Bowel sounds are present. EXTREMITIES: 1 to 2+ pitting edema, no clubbing, no cyanosis. NEUROLOGICAL: sedated on ventilator, not able to assess . Results Result Diagram: 06/24/16 0450 06/24/16 0450 Results 24 hrs Laboratory Tests Test 06/23/16 12:00 06/23/16 13:15 06/23/16 15:13 06/23/16 15:47 Sodium Level 140 Potassium Level 4.9 Chloride Level 104 Carbon Dioxide Level 25 Anion Gap 16 Blood Urea Nitrogen 127 H Creatinine 6.84 H Glucose Level 92 # Calcium Level 6.9 L Bedside Glucose 99 105 101 Test 06/23/16 17:03 06/23/16 17:36 06/23/16 17:59 06/23/16 18:46 Bedside Glucose 68 L 220 187 179 Test 06/23/16 18:55 06/23/16 19:54 06/23/16 21:12 06/23/16 22:03 Sodium Level 138 Potassium Level 5.5 H Chloride Level 102 Carbon Dioxide Level 25 Anion Gap 17 H Blood Urea Nitrogen 132 H Creatinine 7.01 H Glucose Level 222 #H Calcium Level 6.9 L Bedside Glucose 173 215 223 H Test 06/23/16 23:03 06/24/16 00:15 06/24/16 01:03 06/24/16 02:04 Bedside Glucose 212 183 187 176 Test 06/24/16 03:01 06/24/16 04:11 06/24/16 04:50 06/24/16 04:58 Bedside Glucose 150 140 131 White Blood Count 34.8 H Red Blood Count 3.02 L Hemoglobin 9.0 L Hematocrit 24.2 L Mean Corpuscular Volume 80.1 L Mean Corpuscular Hemoglobin 29.8 Mean Corpuscular Hemoglobin Concent 37.2 H Red Cell Distribution Width 14.0 Platelet Count 107 #L Mean Platelet Volume 13.9 H Neutrophils % 94.0 H Lymphocytes % 5.0 L Monocytes % 1.0 Eosinophils % Neutrophils # 32.7 H Lymphocytes # 1.7 Monocytes # 0.3 Eosinophils # Sodium Level 143 Potassium Level 4.8 Chloride Level 102 Carbon Dioxide Level 25 Anion Gap 21 H Blood Urea Nitrogen 140 H Creatinine 7.29 H Glucose Level 127 # Calcium Level 7.1 L Magnesium Level 2.4 Test 06/24/16 06:02 06/24/16 07:03 06/24/16 07:56 06/24/16 09:11 Bedside Glucose 138 106 113 127 Test 06/24/16 09:59 06/24/16 11:08 Bedside Glucose 146 160 Medications Medications Current Medications Acetaminophen (Tylenol Supp) 650 mg Q4H PRN [place] PAIN LEVEL 1-3 OR FEVER; Start 06/21/16 at 20:30 Heparin Sodium (Porcine) (Heparin (5000 Units/0.5 ml)) 5,000 unit Q8 SC Last administered on 06/23/16 06:05; Admin Dose 5,000 UNIT; Start 06/21/16 at 22:00 Dextrose (D50w Syringe) 50 ml Q15M PRN IV For BS 50 or less; Start 06/21/16 at 23:30 Dextrose 25 ml 25 ml Q15M PRN IV BS between 50-70 Last administered on 17:09; Admin Dose 25 ML; Start 06/21/16 at 23:30 Propofol (Diprivan) 100 ml @ 2.045 mls/ hr Q12H IV Last administered on 03:53; Admin Dose 2.045 MLS/HR; Start 06/21/16 at 23:30 Eye Lubricant 2 drop 2 drop QID BOTH EYES Last administered on 06/24/16 07:55 ; Admin Dose 2 DROP; Start 06/22/16 at 13:00 Norepinephrine 32 mg/Dextrose 250 ml @ 0.46 mls/hr TITRATE IV Last administered on 06/24/16 02:40; Admin Dose 4.65 MLS/HR; Start 06/22/16 at 18:00 Phenylephrine HCl/ Dextrose (Victor Hugo-Syneph/D5W) 250 ml @ 18.75 mls/ hr TITRATE IV ; Start 06/22/16 at 18:00 Diagnostic Test (Pha) 1 ea 1 ea Q1H XX Last administered on 06/24/16 10:20; Admin Dose 1 EA; Start 06/22/16 at 22:00 Meropenem (Merrem 500 Mg/ 100 ml (Pmx)) 100 ml @ 200 mls/hr Q24H IVPB Last administered on 06/23/16 12:00; Admin Dose 200 MLS/HR; Start 06/23/16 at 12:00 Pantoprazole 40 mg 40 mg DAILY@06 IV Last administered on 06/24/16 06:39; Admin Dose 40 MG; Start 06/24/16 at 06:00 Sodium Bicarbonate/ Dextrose/Sodium Chloride (Na Bicarb/D5-1/ 2ns) 1,000 ml @ 50 mls/hr Q20H IV Last administered on 06/23/16 19:03; Admin Dose 50 MLS/HR; Start 06/23/16 at 14:30 RADHA SRPINGER MD June 24, 2016 11:37
[2016-06-24] MEDS: MEROPENEM 500 MG/100 ML (PMX) 100 ML IVPB SCH (12:19)
[2016-06-24] MEDS: SODIUM BICARBONATE (IV ADD) 50 MEQ in DEXTROSE 5%-0.45% NACL 950 ML IV SCH (12:20)
--- NOTE | 2016-06-24 13:03 | PN ---
DATE: 06/24/2016 SUBJECTIVE: No acute changes. The patient remains intubated on insulin and Levophed drip. No feve rs. Family at bedside. VITAL SIGNS: Temperature 99, pulse 91, respirations 26, blood pressure 119/55, saturation 100 on ve nt. WBC 34.8, H and H 9 and 24.2, platelets 107, neutrophils 94. INDWELLINGS: Endotracheal tube, NG tube, right subclavian triple lumen catheter, right femoral Magalys ton catheter. ANTIMICROBIALS: Meropenem. PHYSICAL EXAMINATION: GENERAL: This is a well-developed, well-nourished, elderly man who is in no distress. HEENT: Head atraumatic, normocephalic. Sclerae anicteric. Buccal mucosa dry. NECK: Supple, trachea midline. CHEST: Rise symmetrical. Breath sounds diminished to bases. HEART: S1, S2. ABDOMEN: Soft. Bowel tones hypoactive. EXTREMITIES: Without cyanosis. ASSESSMENT: 1. Severe sepsis with shock and multisystem organ failure. 2. Escherichia coli extended-spectrum beta-lactamase urinary tract infection with bacteremia. 3. Acute respiratory failure secondary to pulmonary edema. 4. Acute on chronic kidney disease, started on hemodialysis. 5. Diabetes with metabolic acidosis. 6. Status post rapid atrial fibrillation. PLAN: Remains hemodynamically unstable on appropriate antimicrobials. Continue present care. Foll ow recommendations of consultants. Prognosis guarded. Dictated By: SANAM JIMÉNEZ SAILMAKER for TAMMY FIELD MD NI/NTS Conf#: [id number] DID#: [id number]
[2016-06-24 14:21] LABS: CALCIUM 7.2 mg/dl (8.4-10.2)
[2016-06-24 14:28] LABS: CREATININE 7.42 mg/dl (0.61-1.24)
[2016-06-24 14:29] LABS: POTASSIUM 5.2 mmol/L (3.5-5.1)
--- NOTE | 2016-06-24 15:23 | PN ---
Date/Time of Note Date/Time of Note DATE: 06/24/16 TIME: 15:19 Assessment/Plan VTE Prophylaxis VTE Prophylaxis Intervention: heparin Assessment/Plan Chief Complaint/Hosp Course #1 acute respiratory failure secondary to acute encephalopathy from sepsis and/ or DKA and/or Uremia -cont vent support -cont HD and Abx -Pulmonology consult appreciated #2 Septic Shock from UTI with acute encephalopathy -cont Abx, weaning pressors -Urine and Blood Cx's show ESBL E Coli -ID Consult appreciated, cont Meropenem #3 Acute renal failure with hyperkalemia and Uremia requiring emergent dialysis -cont HD -baseline Cr unknown at this time #4 Cardiac arrest 2/2 above with ROSC -pt now a DNR after discussion with family #5 hyponatremia: resolved #6 DKA-A1C at 8.3 -cont Insulin gtt, AG still elevated #7 SVT -cont Amio #8 history of hypertension -currently on pressors #9 Hematuria likely secondary to cystitis -Urology consultation DVT and GI prophylaxis: Heparin subcu, Protonix IV Problems: Subjective 24 Hr Interval Summary Subjective hx not possible: pt non-verbal Exam/Review of Systems Vital Signs Vitals Vital Signs Date Time Temp Pulse Resp B/P Pulse Ox O2 Delivery O2 Flow Rate FiO2 06/24/16 14:30 90 29 110/55 100 06/24/16 12:00 99.0 06/24/16 08:00 40 06/24/16 07:15 Mechanical Ventilator 06/21/16 16:30 2 Intake and Output 06/23/16 06/23/16 06/24/16 15:00 23:00 07:00 Intake Total 360.5 ml 851.01 ml 698.82 ml Output Total 270 ml 380 ml 500 ml Balance 90.5 ml 471.01 ml 198.82 ml Exam Constitutional: non-verbal ENMT: intubated Respiratory: clear to auscultation Cardiovascular: regular rate and rhythm Gastrointestinal: soft, No distended Musculoskeletal: nl extremities to inspection Results Result Diagram: 06/24/16 0450 06/24/16 1347 Results 24 hrs Laboratory Tests Test 06/23/16 15:47 06/23/16 17:03 06/23/16 17:36 06/23/16 17:59 Bedside Glucose 101 68 L 220 187 Test 06/23/16 18:46 06/23/16 18:55 06/23/16 19:54 06/23/16 21:12 Bedside Glucose 179 173 215 Sodium Level 138 Potassium Level 5.5 H Chloride Level 102 Carbon Dioxide Level 25 Anion Gap 17 H Blood Urea Nitrogen 132 H Creatinine 7.01 H Glucose Level 222 #H Calcium Level 6.9 L Test 06/23/16 22:03 06/23/16 23:03 06/24/16 00:15 06/24/16 01:03 Bedside Glucose 223 H 212 183 187 Test 06/24/16 02:04 06/24/16 03:01 06/24/16 04:11 06/24/16 04:50 Bedside Glucose 176 150 140 White Blood Count 34.8 H Red Blood Count 3.02 L Hemoglobin 9.0 L Hematocrit 24.2 L Mean Corpuscular Volume 80.1 L Mean Corpuscular Hemoglobin 29.8 Mean Corpuscular Hemoglobin Concent 37.2 H Red Cell Distribution Width 14.0 Platelet Count 107 #L Mean Platelet Volume 13.9 H Neutrophils % 94.0 H Lymphocytes % 5.0 L Monocytes % 1.0 Eosinophils % Neutrophils # 32.7 H Lymphocytes # 1.7 Monocytes # 0.3 Eosinophils # Sodium Level 143 Potassium Level 4.8 Chloride Level 102 Carbon Dioxide Level 25 Anion Gap 21 H Blood Urea Nitrogen 140 H Creatinine 7.29 H Glucose Level 127 # Calcium Level 7.1 L Magnesium Level 2.4 Test 06/24/16 04:58 06/24/16 06:02 06/24/16 07:03 06/24/16 07:56 Bedside Glucose 131 138 106 113 Test 06/24/16 09:11 06/24/16 09:59 06/24/16 11:08 06/24/16 12:23 Bedside Glucose 127 146 160 129 Test 06/24/16 13:09 06/24/16 13:47 06/24/16 13:52 Bedside Glucose 171 133 Sodium Level 140 Potassium Level 5.2 H Chloride Level 99 Carbon Dioxide Level 25 Anion Gap 21 H Blood Urea Nitrogen 146 H Creatinine 7.42 H Glucose Level 161 Calcium Level 7.2 L Medications Medications Current Medications Acetaminophen (Tylenol Supp) 650 mg Q4H PRN [place] PAIN LEVEL 1-3 OR FEVER; Start 06/21/16 at 20:30 Dextrose (D50w Syringe) 50 ml Q15M PRN IV For BS 50 or less; Start 06/21/16 at 23:30 Dextrose (D50w Syringe) 25 ml Q15M PRN IV BS between 50-70 Last administered on 06/23/16 17:09; Admin Dose 25 ML; Start 06/21/16 at 23:30 Eye Lubricant 2 drop 2 drop QID BOTH EYES Last administered on 06/24/16 12:23 ; Admin Dose 2 DROP; Start 06/22/16 at 13:00 Norepinephrine 32 mg/Dextrose 250 ml @ 0.46 mls/hr TITRATE IV Last administered on 06/24/16 02:40; Admin Dose 4.65 MLS/HR; Start 06/22/16 at 18:00 Phenylephrine HCl/ Dextrose (Victor Hugo-Syneph/D5W) 250 ml @ 18.75 mls/ hr TITRATE IV ; Start 06/22/16 at 18:00 Diagnostic Test (Pha) 1 ea 1 ea Q1H XX Last administered on 06/24/16 12:23; Admin Dose 1 EA; Start 06/22/16 at 22:00 Meropenem (Merrem 500 Mg/ 100 ml (Pmx)) 100 ml @ 200 mls/hr Q24H IVPB Last administered on 06/24/16 12:19; Admin Dose 200 MLS/HR; Start 06/23/16 at 12:00 Pantoprazole 40 mg 40 mg DAILY@06 IV Last administered on 06/24/16 06:39; Admin Dose 40 MG; Start 06/24/16 at 06:00 Sodium Bicarbonate/ Dextrose/Sodium Chloride (Na Bicarb/D5-1/ 2ns) 1,000 ml @ 50 mls/hr Q20H IV Last administered on 06/24/16 12:20; Admin Dose 50 MLS/HR; Start 06/23/16 at 14:30 AUDRA MCARTUHR June 24, 2016 15:23
--- NOTE | 2016-06-24 20:56 | CONS ---
DATE OF ADMISSION: 06/21/2016 DATE OF CONSULTATION: 06/24/2016 REQUESTING PHYSICIAN: Dr. Vasquez Dear Dr. Vasquez: Thank you for asking me to see this patient in urological consultation. HISTORY OF PRESENT ILLNESS: This patient was brought to [facility] because of alt ered mental status, was found to be in acute renal failure, and he was also in respiratory failure a nd was intubated and is still on a respirator. The patient does have a history of hypertension and prediabetes. The patient was found to have septic shock, urinary tract infection, with acute enceph alopathy. The urine culture and blood cultures did show ESBL E. coli. The patient has been on miguelangel penem for that. The patient also had cardiac arrest 2/2 above. The patient now is DNR. The patien t has a Zamorano catheter and the urine is very bloody. Therefore, a urological consultation was reque sted. The patient himself is not capable of giving any history. ALLERGIES: HE HAS NO KNOWN DRUG ALLERGIES. SOCIAL HISTORY: He does not smoke, does not drink any alcohol. PAST SURGICAL HISTORY: Includes he has had had hip surgery in 2016. MEDICATIONS: The medications that he presently is on include: 1. Protonix. 2. Sodium bicarbonate. 3. Meropenem. 4. He is on norepinephrine drip. 5. Also phenylephrine drip. 6. Eye lubricant. 7. Insulin coverage. 8. Albumin. 10. Tylenol. PHYSICAL EXAMINATION: GENERAL: Reveals an elderly male who is on a respirator. He weighs 68.18 kg. He is 72 inches tall . VITAL SIGNS: His temperature is 98.9, the pulse is 94, blood pressure 116/44, respirations 24. ABDOMEN: Soft. There is no abdominal mass palpable. EXTERNAL GENITALIA: He does have an indwelling Zamorano catheter that is draining gross bloody urine. RECTAL: Revealed soft prostate that is not large. LABORATORY DATA: His CBC shows a white count of 34.8, hemoglobin 9.0, hematocrit 24.2. The BUN is 146, creatinine 7.42, sodium 140, potassium 5.0, chloride 99, CO2 of 25. Again, the urine culture a nd blood culture, they all showed E. coli ESBL. IMPRESSION: 1. Gross hematuria. 2. Urinary tract infection and septicemia with Escherichia coli extended-spectrum beta-lactamase. PLAN: First, they tried to irrigate the Zamorano catheter that he had and that would not irrigate. Th erefore, I had the catheter removed. Then, I inserted a 16-[place] coude catheter and that went into the bladder. Then I aspirated blood clots through that catheter. However, that catheter was not b ig enough to irrigate all the blood clots out. Therefore, I decided to remove it and also, since th e patient is in renal failure, so he does not make much urine, so any bleeding that he does will coa gulate into the bladder. Therefore, I went ahead and removed the coude catheter and inserted a 20-F rench 3-way Zamorano catheter. I kept hand irrigating this catheter until I got all the clots out of t he bladder. Then I started him on continuous bladder irrigation with normal saline and that helped to clear up the urine. The recommendation is to continue the bladder irrigation, continue the antib iotics. Dictated By: BEE MOTA/ASH Conf#: [id number] DID#: [id number] CC: AUDRA VASQUEZ MD; Zhao Jose;*End*
[2016-06-25] VITALS (105 sets, daily range): BP systolic 88–165; BP diastolic 39–91; PULSE 78–106; RESP 17–35
[2016-06-25] MEDS: ACCU-CHEK XX SCH ×23 (01:21→23:00)
[2016-06-25 04:02] LABS: ADD SCAN DIFF NO
[2016-06-25 04:03] LABS: ABNORMAL IP MESSAGE 1; HEMATOCRIT 22.1 % (42.0-52.0); MEAN CORPUSCULAR HEMOGLOBIN 29.5 pg (29.0-33.0); MEAN CORPUSCULAR HGB CONC 36.2 g/dl (32.0-37.0); MEAN CORPUSCULAR VOLUME 81.5 fl (82.0-101.0); MEAN PLATELET VOLUME 13.7 fl (7.4-10.4); PLATELET COUNT 98 10^3/UL (140-415); RED BLOOD COUNT 2.71 10^6/ul (4.70-6.10); RED CELL DISTRIBUTION WIDTH 14.6 % (11.5-14.5); WHITE BLOOD COUNT 29.1 10^3/ul (4.8-10.8)
[2016-06-25 04:39] LABS: POTASSIUM 4.1 mmol/L (3.5-5.1)
[2016-06-25 04:41] LABS: CREATININE 6.06 mg/dl (0.61-1.24)
[2016-06-25 04:42] LABS: CALCIUM 7.7 mg/dl (8.4-10.2)
[2016-06-25] MEDS: PANTOPRAZOLE 40 MG INJ IV SCH (05:53)
[2016-06-25] MEDS: SODIUM BICARBONATE (IV ADD) 50 MEQ in DEXTROSE 5%-0.45% NACL 950 ML IV SCH ×2 (06:30→10:57)
--- NOTE | 2016-06-25 10:21 | CONS ---
Date/Time of Note Date/Time of Note DATE: 06/25/16 TIME: 10:18 Assessment/Plan Assessment/Plan Additional Assessment/Plan 1. Acute hyperkalemia, potassium 8.1 on admission, started emegently on HD during this admission 2. Severe metabolic acidosis with a bicarbonate level of 6 on admission, s/p HDx 2 days, currently on bicarbonate drip 3. Acute uremic encephalopathy with a BUN of more than 240.- now down to 120 4. Hyponatremia with a sodium of 126, likely secondary to uncontrolled hyperglycemia. 5. Hypoalbuminemia with albumin 2.6 and the patient has a 4+ proteinuria on urinalysis concerned about proteinuric CKD that has been undiagnosed. 6. Altered mental status secondary to acute uremic encephalopathy. 7. Acute urinary tract infection with Urine cx growing ESBL E.coli 8. History of hypertension. 9. History of prediabetes as per the family, no significant history of diabetes or any diabetic nephropathy as per the family. PLAN: remains intubated, s/p urology consult, s/p Zamorano catheter changed to 3 way- on continuour bladder irrigation S/p HD yesterday 1 L removed Amiodarone drip for atrial fibrillation- now rate controlled pt is made DNR, family wants to continue Agressive ventilaor care and HD this time until they talk with other family memebrs pt more stable today IV abx for ESBL Ecoli UTI, ID following will follow up Consultation Date/Type/Reason Admit Date/Time June 21, 2016 at 20:39 Initial Consult Date 06/21/16 Type of Consultation: NEPHROLOGY Referring Provider: STORM MONTANO 24 HR Interval Summary Free Text/Dictation remains intubated, s/p urology consult, s/p Zamorano catheter changed to 3 way- on continuour bladder irrigation S/p HD yesterday 1 L removed Exam/Review of Systems Vital Signs Vitals Vital Signs Date Time Temp Pulse Resp B/P Pulse Ox O2 Delivery O2 Flow Rate FiO2 06/25/16 08:45 98 23 113/47 100 Mechanical Ventilator 06/25/16 08:00 99.3 06/25/16 05:03 40 06/21/16 16:30 2 Intake and Output 06/24/16 06/24/16 06/25/16 15:00 23:00 07:00 Intake Total 380.94 ml 943.01 ml 431 ml Output Total 90 ml 6510 ml 5500 ml Balance 290.94 ml -5566.99 ml -5069 ml Exam GENERAL: intubated, sedated on ventilator HEENT: ET tube in place NECK: Supple. no LAD . LUNGS: Bibasilar crackles present up to the mid lung zone with expiratory wheezing present. HEART: S1, S2, irregularly irregular . No murmur. ABDOMEN: Soft, nontender, nondistended. Bowel sounds are present. EXTREMITIES: 1 to 2+ pitting edema, no clubbing, no cyanosis. NEUROLOGICAL: sedated on ventilator, not able to assess . Results Result Diagram: 06/25/16 0400 06/25/16 0400 Results 24 hrs Laboratory Tests Test 06/24/16 11:08 06/24/16 12:23 06/24/16 13:09 06/24/16 13:47 Bedside Glucose 160 129 171 Sodium Level 140 Potassium Level 5.2 H Chloride Level 99 Carbon Dioxide Level 25 Anion Gap 21 H Blood Urea Nitrogen 146 H Creatinine 7.42 H Glucose Level 161 Calcium Level 7.2 L Test 06/24/16 13:52 06/24/16 16:47 06/24/16 17:43 06/24/16 18:19 Bedside Glucose 133 104 94 187 Test 06/24/16 19:04 06/24/16 20:05 06/24/16 20:57 06/24/16 22:02 Bedside Glucose 205 183 209 189 Test 06/24/16 23:04 06/25/16 00:02 06/25/16 01:01 06/25/16 01:46 Bedside Glucose 202 169 192 166 Test 06/25/16 03:08 06/25/16 04:00 06/25/16 04:07 06/25/16 05:01 Bedside Glucose 152 148 146 White Blood Count 29.1 H Red Blood Count 2.71 L Hemoglobin 8.0 L Hematocrit 22.1 L Mean Corpuscular Volume 81.5 L Mean Corpuscular Hemoglobin 29.5 Mean Corpuscular Hemoglobin Concent 36.2 Red Cell Distribution Width 14.6 H Platelet Count 98 L Mean Platelet Volume 13.7 H Neutrophils % Eosinophils % Neutrophils # Eosinophils # Sodium Level 146 H Potassium Level 4.1 Chloride Level 104 Carbon Dioxide Level 26 Anion Gap 20 H Blood Urea Nitrogen 104 #H Creatinine 6.06 H Glucose Level 145 Calcium Level 7.7 L Test 06/25/16 05:57 06/25/16 07:05 06/25/16 07:59 Bedside Glucose 121 77 112 Medications Medications Current Medications Acetaminophen (Tylenol Supp) 650 mg Q4H PRN [place] PAIN LEVEL 1-3 OR FEVER; Start 06/21/16 at 20:30 Dextrose (D50w Syringe) 50 ml Q15M PRN IV For BS 50 or less; Start 06/21/16 at 23:30 Dextrose (D50w Syringe) 25 ml Q15M PRN IV BS between 50-70 Last administered on 06/23/16 17:09; Admin Dose 25 ML; Start 06/21/16 at 23:30 Eye Lubricant 2 drop 2 drop QID BOTH EYES Last administered on 06/24/16 21:01 ; Admin Dose 2 DROP; Start 06/22/16 at 13:00 Norepinephrine 32 mg/Dextrose 250 ml @ 0.46 mls/hr TITRATE IV Last administered on 06/24/16 02:40; Admin Dose 4.65 MLS/HR; Start 06/22/16 at 18:00 Phenylephrine HCl/ Dextrose (Victor Hugo-Syneph/D5W) 250 ml @ 18.75 mls/ hr TITRATE IV ; Start 06/22/16 at 18:00 Diagnostic Test (Pha) 1 ea 1 ea Q1H XX Last administered on 06/25/16 08:00; Admin Dose 1 EA; Start 06/22/16 at 22:00 Meropenem (Merrem 500 Mg/ 100 ml (Pmx)) 100 ml @ 200 mls/hr Q24H IVPB Last administered on 06/24/16 12:19; Admin Dose 200 MLS/HR; Start 06/23/16 at 12:00 Pantoprazole 40 mg 40 mg DAILY@06 IV Last administered on 06/25/16 05:53; Admin Dose 40 MG; Start 06/24/16 at 06:00 Sodium Bicarbonate/ Dextrose/Sodium Chloride (Na Bicarb/D5-1/ 2ns) 1,000 ml @ 50 mls/hr Q20H IV Last administered on 06/24/16 12:20; Admin Dose 50 MLS/HR; Start 06/23/16 at 14:30 RADHA SPRINGER MD June 25, 2016 10:21
--- NOTE | 2016-06-25 10:52 | CONS ---
Date/Time of Note Date/Time of Note DATE: 06/25/16 TIME: 10:49 Consult Date/Type/Reason Admit Date/Time June 21, 2016 at 20:39 Initial Consult Date 06/22/16 Type of Consultation: Pulmonary ICU Ordering Provider: STORM MONTANO Subjective Remains somnolent on mechanical ventilation continues vasopressor support Continues insulin drip CODE STATUS DNR Objective Vital Signs Date Time Temp Pulse Resp B/P Pulse Ox O2 Delivery O2 Flow Rate FiO2 06/25/16 08:45 98 23 113/47 100 Mechanical Ventilator 06/25/16 08:00 99.3 06/25/16 05:03 40 06/21/16 16:30 2 Intake and Output 06/24/16 06/24/16 06/25/16 15:00 23:00 07:00 Intake Total 380.94 ml 943.01 ml 431 ml Output Total 90 ml 6510 ml 5500 ml Balance 290.94 ml -5566.99 ml -5069 ml Exam PHYSICAL EXAMINATION GENERAL: Elderly gentleman, intubated on mechanical ventilation, opens eyes and appears somewhat agitated. Orally intubated. VITAL SIGNS: see below. HEENT: Pupils equal, round, and reactive to light. CARDIAC: S1, S2, 1/6 systolic ejection murmur CHEST: Diminished air entry bilaterally. ABDOMEN: Mildly distended. Bowel sounds present no guarding or rebound EXTREMITIES: No cyanosis, clubbing edema +1 NEUROLOGIC: Generalized weakness Results/Medications Result Diagram: 06/25/16 0400 06/25/16 0400 Results 24 hrs Laboratory Tests Test 06/24/16 11:08 06/24/16 12:23 06/24/16 13:09 06/24/16 13:47 Bedside Glucose 160 129 171 Sodium Level 140 Potassium Level 5.2 H Chloride Level 99 Carbon Dioxide Level 25 Anion Gap 21 H Blood Urea Nitrogen 146 H Creatinine 7.42 H Glucose Level 161 Calcium Level 7.2 L Test 06/24/16 13:52 06/24/16 16:47 06/24/16 17:43 06/24/16 18:19 Bedside Glucose 133 104 94 187 Test 06/24/16 19:04 06/24/16 20:05 06/24/16 20:57 06/24/16 22:02 Bedside Glucose 205 183 209 189 Test 06/24/16 23:04 06/25/16 00:02 06/25/16 01:01 06/25/16 01:46 Bedside Glucose 202 169 192 166 Test 06/25/16 03:08 06/25/16 04:00 06/25/16 04:07 06/25/16 05:01 Bedside Glucose 152 148 146 White Blood Count 29.1 H Red Blood Count 2.71 L Hemoglobin 8.0 L Hematocrit 22.1 L Mean Corpuscular Volume 81.5 L Mean Corpuscular Hemoglobin 29.5 Mean Corpuscular Hemoglobin Concent 36.2 Red Cell Distribution Width 14.6 H Platelet Count 98 L Mean Platelet Volume 13.7 H Neutrophils % Eosinophils % Neutrophils # Eosinophils # Sodium Level 146 H Potassium Level 4.1 Chloride Level 104 Carbon Dioxide Level 26 Anion Gap 20 H Blood Urea Nitrogen 104 #H Creatinine 6.06 H Glucose Level 145 Calcium Level 7.7 L Test 06/25/16 05:57 06/25/16 07:05 06/25/16 07:59 06/25/16 10:34 Bedside Glucose 121 77 112 171 Medications Current Medications Acetaminophen (Tylenol Supp) 650 mg Q4H PRN [place] PAIN LEVEL 1-3 OR FEVER; Start 06/21/16 at 20:30 Dextrose (D50w Syringe) 50 ml Q15M PRN IV For BS 50 or less; Start 06/21/16 at 23:30 Dextrose (D50w Syringe) 25 ml Q15M PRN IV BS between 50-70 Last administered on 06/23/16 17:09; Admin Dose 25 ML; Start 06/21/16 at 23:30 Eye Lubricant 2 drop 2 drop QID BOTH EYES Last administered on 06/24/16 21:01 ; Admin Dose 2 DROP; Start 06/22/16 at 13:00 Norepinephrine 32 mg/Dextrose 250 ml @ 0.46 mls/hr TITRATE IV Last administered on 06/24/16 02:40; Admin Dose 4.65 MLS/HR; Start 06/22/16 at 18:00 Phenylephrine HCl/ Dextrose (Victor Hugo-Syneph/D5W) 250 ml @ 18.75 mls/ hr TITRATE IV ; Start 06/22/16 at 18:00 Diagnostic Test (Pha) 1 ea 1 ea Q1H XX Last administered on 06/25/16 08:00; Admin Dose 1 EA; Start 06/22/16 at 22:00 Meropenem (Merrem 500 Mg/ 100 ml (Pmx)) 100 ml @ 200 mls/hr Q24H IVPB Last administered on 06/24/16 12:19; Admin Dose 200 MLS/HR; Start 06/23/16 at 12:00 Pantoprazole 40 mg 40 mg DAILY@06 IV Last administered on 06/25/16 05:53; Admin Dose 40 MG; Start 06/24/16 at 06:00 Sodium Bicarbonate/ Dextrose/Sodium Chloride (Na Bicarb/D5-1/ 2ns) 1,000 ml @ 50 mls/hr Q20H IV Last administered on 06/24/16 12:20; Admin Dose 50 MLS/HR; Start 06/23/16 at 14:30 Assessment/Plan Chief Complaint/Hosp Course Assessment 1. Hypoxemic respiratory failure secondary to encephalopathy 2. Septic shock likely secondary to UTI 3. Anemia no evidence of GI bleeding 4. Acute on chronic renal failure Plan 1. Continue mechanical ventilation 2. Continue vasopressors 3. Renal recommendations 4. DVT and GI prophylaxis 5. Family conference regarding goals of care Problems: [facility] June 25, 2016 10:52
[2016-06-25] MEDS: ARTIFICIAL TEARS 15 ML OPH BOTH EYES SCH ×4 (10:58→21:07)
[2016-06-25] MEDS: MEROPENEM 500 MG/100 ML (PMX) 100 ML IVPB SCH (12:00)
--- NOTE | 2016-06-25 13:22 | PN ---
DATE: 06/25/2016 SUBJECTIVE: No events overnight. The patient still on insulin and Levophed drip, intubated, in no distress. He is afebrile. VITAL SIGNS: Temperature 99.3, pulse 95, respirations 23, blood pressure 113/47, saturation 100% on 40% FIO2. LABORATORY DATA: WBC today 29.1 with H and H 8 and 22.1, platelets 98, neutrophils, 13.7. BUN 104, creatinine 6.06. ANTIMICROBIALS: The patient is on meropenem. PHYSICAL EXAMINATION: GENERAL: This is a chronically ill-appearing, elderly man who is in no distress. HEENT: Head atraumatic, normocephalic. Sclerae anicteric. Buccal mucosa dry. NECK: Supple, trachea midline. CHEST: Rise symmetrical. Breath sounds diminished to bases. HEART: S1, S2. ABDOMEN: Soft. Bowel sounds hypoactive. EXTREMITIES: Mottled, slightly cyanotic, cold to touch. ASSESSMENT: 1. Severe sepsis with shock and multisystem organ failure. 2. Escherichia coli extended-spectrum beta-lactamase urinary tract infection with bacteremia. 3. Acute renal failure. 4. Hematuria. 5. Diabetes. 6. Acute respiratory failure secondary to pulmonary edema. 7. Coronary artery disease, status post rapid atrial fibrillation. PLAN: The patient remains hemodynamically unstable. He is being followed by multiple consultants. He is on appropriate antimicrobials. We will repeat blood cultures. Dictated By: SANAM JIMÉNEZ [employer] for TAMMY AGUILAR/ASH Conf#: [id number] DID#: [id number]
[2016-06-25 14:07] LABS: LYMPHOCYTES # 1.2 10^3/ul (0.8-2.9); MONOCYTE # 0.6 10^3/ul (0.3-0.9); NEUTROPHIL # 27.4 10^3/ul (1.6-7.5)
--- NOTE | 2016-06-25 14:39 | PN ---
Date/Time of Note Date/Time of Note DATE: 06/25/16 TIME: 14:37 Assessment/Plan VTE Prophylaxis VTE Prophylaxis Intervention: heparin Assessment/Plan Chief Complaint/Hosp Course #1 acute respiratory failure secondary to acute encephalopathy from sepsis and/ or DKA and/or Uremia -cont vent support -cont HD and Abx -Pulmonology consult appreciated #2 Septic Shock from UTI with acute encephalopathy -cont Abx, weaning pressors -Urine and Blood Cx's show ESBL E Coli -ID Consult appreciated, cont Meropenem #3 Acute renal failure with hyperkalemia and Uremia requiring emergent dialysis -cont HD -baseline Cr unknown at this time #4 Cardiac arrest 2/2 above with ROSC -pt now a DNR after discussion with family #5 hyponatremia: resolved #6 DKA-A1C at 8.3 -cont Insulin gtt, AG still elevated #7 SVT -cont Amio #8 history of hypertension -currently on pressors #9 Hematuria likely secondary to cystitis -Urology consultation DVT and GI prophylaxis: Heparin subcu, Protonix IV Problems: Subjective 24 Hr Interval Summary Subjective hx not possible: pt non-verbal Exam/Review of Systems Vital Signs Vitals Vital Signs Date Time Temp Pulse Resp B/P Pulse Ox O2 Delivery O2 Flow Rate FiO2 06/25/16 12:00 94 06/25/16 10:50 35 95 40 06/25/16 08:45 113/47 Mechanical Ventilator 06/25/16 08:00 99.3 06/21/16 16:30 2 Intake and Output 06/24/16 06/24/16 06/25/16 15:00 23:00 07:00 Intake Total 380.94 ml 943.01 ml 431 ml Output Total 90 ml 6510 ml 5500 ml Balance 290.94 ml -5566.99 ml -5069 ml Exam Constitutional: non-verbal Respiratory: clear to auscultation Cardiovascular: regular rate and rhythm Gastrointestinal: soft, No distended Musculoskeletal: nl extremities to inspection Results Result Diagram: 06/25/16 0400 06/25/16 0400 Results 24 hrs Laboratory Tests Test 06/24/16 16:47 06/24/16 17:43 06/24/16 18:19 06/24/16 19:04 Bedside Glucose 104 94 187 205 Test 06/24/16 20:05 06/24/16 20:57 06/24/16 22:02 06/24/16 23:04 Bedside Glucose 183 209 189 202 Test 06/25/16 00:02 06/25/16 01:01 06/25/16 01:46 06/25/16 03:08 Bedside Glucose 169 192 166 152 Test 06/25/16 04:00 06/25/16 04:07 06/25/16 05:01 06/25/16 05:57 White Blood Count 29.1 H Red Blood Count 2.71 L Hemoglobin 8.0 L Hematocrit 22.1 L Mean Corpuscular Volume 81.5 L Mean Corpuscular Hemoglobin 29.5 Mean Corpuscular Hemoglobin Concent 36.2 Red Cell Distribution Width 14.6 H Platelet Count 98 L Mean Platelet Volume 13.7 H Neutrophils % 94.0 H Lymphocytes % 4.0 L Monocytes % 2.0 Eosinophils % Neutrophils # 27.4 H Lymphocytes # 1.2 Monocytes # 0.6 Eosinophils # Sodium Level 146 H Potassium Level 4.1 Chloride Level 104 Carbon Dioxide Level 26 Anion Gap 20 H Blood Urea Nitrogen 104 #H Creatinine 6.06 H Glucose Level 145 Calcium Level 7.7 L Bedside Glucose 148 146 121 Test 06/25/16 07:05 06/25/16 07:59 06/25/16 10:34 06/25/16 11:21 Bedside Glucose 77 112 171 132 Test 06/25/16 12:08 06/25/16 13:21 Bedside Glucose 156 155 Medications Medications Current Medications Acetaminophen (Tylenol Supp) 650 mg Q4H PRN [place] PAIN LEVEL 1-3 OR FEVER; Start 06/21/16 at 20:30 Dextrose (D50w Syringe) 50 ml Q15M PRN IV For BS 50 or less; Start 06/21/16 at 23:30 Dextrose (D50w Syringe) 25 ml Q15M PRN IV BS between 50-70 Last administered on 06/23/16 17:09; Admin Dose 25 ML; Start 06/21/16 at 23:30 Eye Lubricant 2 drop 2 drop QID BOTH EYES Last administered on 06/25/16 10:58 ; Admin Dose 2 DROP; Start 06/22/16 at 13:00 Norepinephrine 32 mg/Dextrose 250 ml @ 0.46 mls/hr TITRATE IV Last administered on 06/24/16 02:40; Admin Dose 4.65 MLS/HR; Start 06/22/16 at 18:00 Phenylephrine HCl/ Dextrose (Victor Hugo-Syneph/D5W) 250 ml @ 18.75 mls/ hr TITRATE IV ; Start 06/22/16 at 18:00 Diagnostic Test (Pha) 1 ea 1 ea Q1H XX Last administered on 06/25/16 10:00; Admin Dose 1 EA; Start 06/22/16 at 22:00 Meropenem (Merrem 500 Mg/ 100 ml (Pmx)) 100 ml @ 200 mls/hr Q24H IVPB Last administered on 06/25/16 12:00; Admin Dose 200 MLS/HR; Start 06/23/16 at 12:00 Pantoprazole 40 mg 40 mg DAILY@06 IV Last administered on 06/25/16 05:53; Admin Dose 40 MG; Start 06/24/16 at 06:00 Sodium Bicarbonate/ Dextrose/Sodium Chloride (Na Bicarb/D5-1/ 2ns) 1,000 ml @ 50 mls/hr Q20H IV Last administered on 06/25/16 10:57; Admin Dose 50 MLS/HR; Start 06/23/16 at 14:30 AUDRA MCARTHUR June 25, 2016 14:39
--- NOTE | 2016-06-25 23:17 | PN ---
DATE: 06/25/2016 SUBJECTIVE: The patient is on a respirator and has gross hematuria. He has renal failure and he wa s put on continuous bladder irrigation yesterday; therefore, he is not capable of giving any other s ymptoms. OBJECTIVE: VITAL SIGNS: His temperature is 98.2, blood pressure 112/50, respiration is 22, and pulse is 84. ABDOMEN: Soft. The bladder is not distended. The 3-way Zamorano catheter that he has is connected to a continuous bladder irrigation with normal saline, and the return was clear to slightly blood-ting ed. There were no blood clots; however, I did push the catheter in a little bit more, and a blood c lot drained out as well. Earlier in the day the nurse called me and the catheter was not draining a nd the irrigation was going in and not coming out. That is when I told the nurse to push the cathet er in and hand irrigate the catheter, and they did and that did help and did work, and the irrigant fluid that was inside the bladder was aspirated. LABORATORY DATA: CBC shows a white count of 29.1, hemoglobin 8.0, hematocrit 22.1. The patient is scheduled to have dialysis tomorrow. His BUN is 104, creatinine 6.06, sodium 146, potassium 4.1, ch loride 104, CO2 26. IMPRESSION: Gross hematuria that is decreasing with the bladder irrigation. PLAN: To keep the Zamorano catheter in and continue the continuous bladder irrigation with normal sali ne, and hopefully little by little it will clear up so we can stop the irrigation and then discontin ue the catheter, but for now we have to continue the bladder irrigation. If there is a need to hand irrigate the catheter, will have to do that as well. The patient is going to have dialysis tomorro w. Dictated By: BEE MOTA/ASH Conf#: [id number] DID#: [id number]
[2016-06-26] VITALS (55 sets, daily range): BP systolic 0–149; BP diastolic 28–67; PULSE 32–119; RESP 13–38
[2016-06-26] MEDS: ACCU-CHEK XX SCH ×12 (01:49→11:00)
[2016-06-26 05:10] LABS: POTASSIUM 4.2 mmol/L (3.5-5.1)
[2016-06-26 05:14] LABS: CALCIUM 7.4 mg/dl (8.4-10.2); MAGNESIUM 2.4 mg/dl (1.7-2.5); PHOSPHORUS 7.9 mg/dl (2.5-4.9)
[2016-06-26 05:28] LABS: CREATININE 6.66 mg/dl (0.61-1.24)
[2016-06-26] MEDS: PANTOPRAZOLE 40 MG INJ IV SCH (05:56)
[2016-06-26] MEDS: INSULIN HUMAN REGULAR 100 UNIT in SOD CHLORIDE 0.9% 99 ML IV SCH (08:06)
[2016-06-26] MEDS: SODIUM BICARBONATE (IV ADD) 50 MEQ in DEXTROSE 5%-0.45% NACL 950 ML IV SCH (08:29)
[2016-06-26 09:23] LABS: AADO2 Arterial 179.7 mmHg (7.0-24.0); Allen Test ACCEPTAB; Arterial Base Excess -1.3 mmol/L (-3.0-3); Arterial COHb 0.2 % (0.0-3.0); Arterial Fraction of Oxyhgb 93.5 % (93.0-99.0); Arterial HCO3 20.9 mmol/L (22.0-26.0); Arterial MetHb 0.2 % (0.0-1.5); Arterial Total Hemglobin 9.2 g/dl (12.0-18.0); Blood Gas Low PEEP Setting 0 cmH2O; MODE VENT - AC
[2016-06-26] MEDS: ARTIFICIAL TEARS 15 ML OPH BOTH EYES SCH (09:23)
[2016-06-26] MEDS: ALBUMIN HUMAN 25% 100 ML IV PRN (09:54)
--- NOTE | 2016-06-26 10:01 | RADRPT ---
PROCEDURE: XR Chest. CLINICAL INDICATION: Pneumonia; CHF. TECHNIQUE: Single frontal view of the chest was obtained. COMPARISON: Chest x-ray 06/23/2016 06:02 a.m. FINDINGS: The soft tissues are normal. There is a levoscoliosis of the lower thoracic spine. The heart is en larged. cardiomediastinal silhouette and hilar structures are normal. The pulmonary vasculature is increase. There is a left-sided aorta. There are asymmetric pulmonary infiltrates which are more ex tensive in the left left lung and right. There are bilateral pleural effusions greater on the left side. The endotracheal tube rests 1 cm from the mikhail and should be repositioned closer to T3 by w ithdrawing the endotracheal tube about 5.6 cm. An NG tube is well positioned distal to the GE junct ion. A central venous catheter enters from a right subclavian approach with its tip in the superior vena cava. No pneumothorax is identified. There is bilateral apical pleural scarring. IMPRESSION: 1. Cardiomegaly with congestive heart failure asymmetric pulmonary edema. 2. Bilateral pleural effusions are suspected the left larger than the right. 3. The endotracheal tube rests brain near the mikhail and should be withdrawn about 5.6 cm closer to the level of T3-4. Findings were phoned to the ICU nurseShakira at 10:00 a.m. 4. Spondylosis of the thoracic spine. 5. Satisfactory positioning of the central venous catheter and nasogastric tube. RPTAT:AAJJ Physician Amparo Date Time Electronically viewed and signed by Physician Amparo on 06/26/2016 10:01 LORI/
--- NOTE | 2016-06-26 10:13 | CONS ---
Date/Time of Note Date/Time of Note DATE: 06/26/16 TIME: 10:08 Assessment/Plan Assessment/Plan Additional Assessment/Plan 1. Acute hyperkalemia, potassium 8.1 on admission, started emegently on HD during this admission 2. Severe metabolic acidosis with a bicarbonate level of 6 on admission, started on HD during this admission currently on bicarbonate drip 3. Acute uremic encephalopathy with a BUN of more than 240.- now down to 120 4. Hyponatremia with a sodium of 126, likely secondary to uncontrolled hyperglycemia. 5. Hypoalbuminemia with albumin 2.6 and the patient has a 4+ proteinuria on urinalysis concerned about proteinuric CKD that has been undiagnosed. 6. Altered mental status secondary to acute uremic encephalopathy. 7. Acute urinary tract infection with Urine cx growing ESBL E.coli 8. History of hypertension. 9. History of prediabetes as per the family, no significant history of diabetes or any diabetic nephropathy as per the family. 10. Gross hematuria, on continuous bladder irrigation PLAN: remains intubated, s/p urology consult, s/p Zamorano catheter changed to 3 way- on continuous bladder irrigation plan for HD today with 1 L UF Tube feeding started, d/c bicarbonate drip atrial fibrillation- converted to SR- now rate controlled - in 90-100s pt is made DNR, family wants to continue Agressive ventilaor care and HD this time until they talk with other family memebrs IV abx for ESBL Ecoli UTI, ID following will follow up Consultation Date/Type/Reason Admit Date/Time June 21, 2016 at 20:39 Initial Consult Date 06/21/16 Type of Consultation: NEPHROLOGY Referring Provider: STORM MONTANO 24 HR Interval Summary Free Text/Dictation pt remains intubated, Urine output clearing up with bladder irrigation, Plan for HD today Exam/Review of Systems Vital Signs Vitals Vital Signs Date Time Temp Pulse Resp B/P Pulse Ox O2 Delivery O2 Flow Rate FiO2 06/26/16 09:36 95 30 100 40 06/26/16 07:15 116/51 Mechanical Ventilator 06/26/16 04:00 98.3 Intake and Output 06/25/16 06/25/16 06/26/16 15:00 23:00 07:00 Intake Total 461.58 ml 616.72 ml 642.5 ml Output Total 300 ml 500 ml Balance 461.58 ml 316.72 ml 142.5 ml Exam GENERAL: intubated, sedated on ventilator HEENT: ET tube in place NECK: Supple. no LAD . LUNGS: Bibasilar crackles present up to the mid lung zone with expiratory wheezing present. HEART: S1, S2, irregularly irregular . No murmur. ABDOMEN: Soft, nontender, nondistended. Bowel sounds are present. EXTREMITIES: 1 to 2+ pitting edema, no clubbing, no cyanosis. NEUROLOGICAL: sedated on ventilator, not able to assess Results Result Diagram: 06/25/160 06/26/16399 Results 24 hrs Laboratory Tests Test 06/25/16 10:34 06/25/16 11:21 06/25/16 12:08 06/25/16 13:21 Bedside Glucose 171 132 156 155 Test 06/25/16 14:31 06/25/16 15:18 06/25/16 17:12 06/25/16 18:20 Bedside Glucose 158 182 196 212 Test 06/25/16 19:01 06/25/16 20:09 06/25/16 21:06 06/25/16 22:01 Bedside Glucose 213 222 H 253 H 263 H Test 06/25/16 23:01 06/25/16 23:53 06/26/16 01:12 06/26/16 01:57 Bedside Glucose 258 H 272 H 297 H 315 H Test 06/26/16 03:07 06/26/16 04:00 06/26/16 04:02 06/26/16 05:01 Bedside Glucose 297 H 306 H 310 H Sodium Level 143 Potassium Level 4.2 Chloride Level 103 Carbon Dioxide Level 24 Anion Gap 20 H Blood Urea Nitrogen 125 H Creatinine 6.66 H Glucose Level 304 #H Calcium Level 7.4 L Phosphorus Level 7.9 H Magnesium Level 2.4 Test 06/26/16 06:04 06/26/16 07:00 06/26/16 07:02 06/26/16 07:58 Bedside Glucose 314 H 321 H 340 H Blood Gas Specimen Source Blood arterial Arterial Blood Date Drawn 06/26/2016 7:55:10 AM Arterial Blood pH (Temp corrected) 7.515 H Arterial Blood pCO2 (Temp correct) 26.5 L Arterial Blood pO2 (Temp corrected) 75.0 L Arterial Blood HCO3 20.9 L Arterial Blood Base Excess -1.3 Arterial Blood Oxygen Saturation 93.9 L Jack Test ACCEPTAB Arterial Blood Gas Puncture Site Right Radial Arterial Blood Carboxyhemoglobin 0.2 Arterial Blood Methemoglobin 0.2 Blood Gas A-a O2 Differential 179.7 H Oxyhemoglobin Percent 93.5 Total Hemoglobin 9.2 L Blood Gas Temperature 37.0 Blood Gas Respiration Rate 14.0 Blood Gas Actual Respiration Rate 24 Blood Gas Modality VENT - AC FiO2 40.0 Blood Gas Tidal Volume 500.0 Blood Gas Low PEEP Setting 0 Blood Gas Notified Whom JLD Blood Gas Notified Time 06/26/2016 9:23:08 AM Test 06/26/16 09:48 Bedside Glucose 251 H Medications Medications Current Medications Acetaminophen (Tylenol Supp) 650 mg Q4H PRN [place] PAIN LEVEL 1-3 OR FEVER; Start 06/21/16 at 20:30 Dextrose (D50w Syringe) 50 ml Q15M PRN IV For BS 50 or less; Start 06/21/16 at 23:30 Dextrose (D50w Syringe) 25 ml Q15M PRN IV BS between 50-70 Last administered on 06/23/16 17:09; Admin Dose 25 ML; Start 06/21/16 at 23:30 Eye Lubricant 2 drop 2 drop QID BOTH EYES Last administered on 06/26/16 09:23 ; Admin Dose 2 DROP; Start 06/22/16 at 13:00 Norepinephrine 32 mg/Dextrose 250 ml @ 0.46 mls/hr TITRATE IV Last administered on 06/24/16 02:40; Admin Dose 4.65 MLS/HR; Start 06/22/16 at 18:00 Phenylephrine HCl/ Dextrose (Victor Hugo-Syneph/D5W) 250 ml @ 18.75 mls/ hr TITRATE IV ; Start 06/22/16 at 18:00 Diagnostic Test (Pha) 1 ea 1 ea Q1H XX Last administered on 06/26/16 08:03; Admin Dose 1 EA; Start 06/22/16 at 22:00 Meropenem (Merrem 500 Mg/ 100 ml (Pmx)) 100 ml @ 200 mls/hr Q24H IVPB Last administered on 06/25/16 12:00; Admin Dose 200 MLS/HR; Start 06/23/16 at 12:00 Pantoprazole 40 mg 40 mg DAILY@06 IV Last administered on 06/26/16 05:56; Admin Dose 40 MG; Start 06/24/16 at 06:00 Sodium Bicarbonate/ Dextrose/Sodium Chloride (Na Bicarb/D5-1/ 2ns) 1,000 ml @ 50 mls/hr Q20H IV Last administered on 06/26/16 08:29; Admin Dose 50 MLS/HR; Start 06/23/16 at 14:30 RADHA SPRINGER MD June 26, 2016 10:13
[2016-06-26] MEDS ORDERED: SOD CHLORIDE 0.45% 1,000 ML IV SCH (10:30)
--- NOTE | 2016-06-26 11:30 | CONS ---
Date/Time of Note Date/Time of Note DATE: 06/26/16 TIME: 11:29 Consult Date/Type/Reason Admit Date/Time June 21, 2016 at 20:39 Initial Consult Date 06/22/16 Type of Consultation: Pulmonary ICU Ordering Provider: STORM MONTANO Subjective Patient remains altered on mechanical ventilation Currently no vasopressors No sedation Objective Vital Signs Date Time Temp Pulse Resp B/P Pulse Ox O2 Delivery O2 Flow Rate FiO2 06/26/16 10:30 109 06/26/16 09:36 30 100 40 06/26/16 07:15 116/51 Mechanical Ventilator 06/26/16 04:00 98.3 Intake and Output 06/25/16 06/25/16 06/26/16 15:00 23:00 07:00 Intake Total 461.58 ml 616.72 ml 642.5 ml Output Total 300 ml 500 ml Balance 461.58 ml 316.72 ml 142.5 ml Exam PHYSICAL EXAMINATION GENERAL: Chronically ill-appearing gentleman intubated on mechanical ventilation VITAL SIGNS: see below. HEENT: Pupils equal, round, and reactive to light. Tracheostomy site clean and intact. CARDIAC: S1, S2, 1/6 systolic ejection murmur CHEST: Diminished air entry bilaterally. ABDOMEN: Mildly distended. 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 Results/Medications Result Diagram: 06/25/16 0400 06/26/16 0400 Results 24 hrs Laboratory Tests Test 06/25/16 12:08 06/25/16 13:21 06/25/16 14:31 06/25/16 15:18 Bedside Glucose 156 155 158 182 Test 06/25/16 17:12 06/25/16 18:20 06/25/16 19:01 06/25/16 20:09 Bedside Glucose 196 212 213 222 H Test 06/25/16 21:06 06/25/16 22:01 06/25/16 23:01 06/25/16 23:53 Bedside Glucose 253 H 263 H 258 H 272 H Test 06/26/16 01:12 06/26/16 01:57 06/26/16 03:07 06/26/16 04:00 Bedside Glucose 297 H 315 H 297 H Sodium Level 143 Potassium Level 4.2 Chloride Level 103 Carbon Dioxide Level 24 Anion Gap 20 H Blood Urea Nitrogen 125 H Creatinine 6.66 H Glucose Level 304 #H Calcium Level 7.4 L Phosphorus Level 7.9 H Magnesium Level 2.4 Test 06/26/16 04:02 06/26/16 05:01 06/26/16 06:04 06/26/16 07:00 Bedside Glucose 306 H 310 H 314 H Blood Gas Specimen Source Blood arterial Arterial Blood Date Drawn 06/26/2016 7:55:10 AM Arterial Blood pH (Temp corrected) 7.515 H Arterial Blood pCO2 (Temp correct) 26.5 L Arterial Blood pO2 (Temp corrected) 75.0 L Arterial Blood HCO3 20.9 L Arterial Blood Base Excess -1.3 Arterial Blood Oxygen Saturation 93.9 L Jack Test ACCEPTAB Arterial Blood Gas Puncture Site Right Radial Arterial Blood Carboxyhemoglobin 0.2 Arterial Blood Methemoglobin 0.2 Blood Gas A-a O2 Differential 179.7 H Oxyhemoglobin Percent 93.5 Total Hemoglobin 9.2 L Blood Gas Temperature 37.0 Blood Gas Respiration Rate 14.0 Blood Gas Actual Respiration Rate 24 Blood Gas Modality VENT - AC FiO2 40.0 Blood Gas Tidal Volume 500.0 Blood Gas Low PEEP Setting 0 Blood Gas Notified Whom JLD Blood Gas Notified Time 06/26/2016 9:23:08 AM Test 06/26/16 07:02 06/26/16 07:58 06/26/16 09:48 Bedside Glucose 321 H 340 H 251 H Medications Current Medications Acetaminophen (Tylenol Supp) 650 mg Q4H PRN [place] PAIN LEVEL 1-3 OR FEVER; Start 06/21/16 at 20:30 Dextrose (D50w Syringe) 50 ml Q15M PRN IV For BS 50 or less; Start 06/21/16 at 23:30 Dextrose (D50w Syringe) 25 ml Q15M PRN IV BS between 50-70 Last administered on 06/23/16 17:09; Admin Dose 25 ML; Start 06/21/16 at 23:30 Eye Lubricant 2 drop 2 drop QID BOTH EYES Last administered on 06/26/16 09:23 ; Admin Dose 2 DROP; Start 06/22/16 at 13:00 Norepinephrine 32 mg/Dextrose 250 ml @ 0.46 mls/hr TITRATE IV Last administered on 06/24/16 02:40; Admin Dose 4.65 MLS/HR; Start 06/22/16 at 18:00 Phenylephrine HCl/ Dextrose (Victor Hugo-Syneph/D5W) 250 ml @ 18.75 mls/ hr TITRATE IV ; Start 06/22/16 at 18:00 Diagnostic Test (Pha) 1 ea 1 ea Q1H XX Last administered on 06/26/16 08:03; Admin Dose 1 EA; Start 06/22/16 at 22:00 Meropenem (Merrem 500 Mg/ 100 ml (Pmx)) 100 ml @ 200 mls/hr Q24H IVPB Last administered on 06/25/16 12:00; Admin Dose 200 MLS/HR; Start 06/23/16 at 12:00 Pantoprazole (Protonix Iv) 40 mg DAILY@06 IV Last administered on 06/26/16 05: 56; Admin Dose 40 MG; Start 06/24/16 at 06:00 Assessment/Plan Chief Complaint/Hosp Course Assessment 1. Hypoxemic respiratory failure secondary to encephalopathy 2. Septic shock likely secondary to UTI and pneumonia 3. Anemia no evidence of GI bleeding 4. Acute on chronic renal failure Plan 1. Continue mechanical ventilation 2. Continue vasopressors 3. Renal recommendations 4. DVT and GI prophylaxis 5. Family conference regarding goals of care Disposition Overall prognosis very poor Problems: [facility] June 26, 2016 11:30
--- NOTE | 2016-06-26 16:12 | DES ---
DATE OF ADMISSION: 06/21/2016 DATE OF : 06/26/2016 DIAGNOSIS: Cardiopulmonary failure secondary to severe sepsis from extended-spectrum beta-lac tamase Escherichia coli urinary tract infection with acute kidney injury and diabetes. HOSPITAL COURSE: The patient is an 85-year-old male with history of diabetes. The patient presents with acute encephalopathy, septic shock and acute respiratory failure. Patient was intubated and w as on pressors and IV fluids with antibiotics and he was found to have ESBL E. coli UTI with bactere jeff, the same organism. The patient also went into acute kidney injury. He was seen by nephrology, ID, pulmonology as well as urology for his severe cystitis and the patient had an episode of cardia c arrest. At one point, he was resuscitated. The patient did exhibit signs of persistent encephalo christel. The patient also had DKA on arrival and was on insulin drip. The patient's family decided t o make the patient DNR after his first cardiac arrest. The patient was being weaned off pressors bu t ultimately succumbed to his comorbidities and he went into ____ at 11:50 and was pronounced at 12: 35. Dictated By: AUDRA MCARTHUR MD BS/NTS Conf#: [id number] DID#: [id number]
== END 2016-06-26 11:51 | disposition expired | DRG 870 ==
LOC: E/R 16:16 → ICU 20:39
PROVIDERS: ADMIT Family Medicine; ATTEND Family Medicine
PROC: 5A1955Z Respiratory Ventilation, Greater than 96 Consecutive Hours (ICD-10-PCS; 2016-06-21)
PROC: 0BH17EZ Insertion of Endotracheal Airway into Trachea, Via Natural or Artificial Opening (ICD-10-PCS; 2016-06-21)
PROC: 06HY33Z Insertion of Infusion Device into Lower Vein, Percutaneous Approach (ICD-10-PCS; 2016-06-21)
PROC: 5A1D60Z (ICD-10-PCS; 2016-06-21)
PROC: 05H533Z Insertion of Infusion Device into Right Subclavian Vein, Percutaneous Approach (ICD-10-PCS; principal; 2016-06-22)
PROC: 3E1K78Z Irrigation of Genitourinary Tract using Irrigating Substance, Via Natural or Artificial Opening (ICD-10-PCS; 2016-06-24)
DX: A41.51 Sepsis due to Escherichia coli [E. coli] (principal); J96.01 Acute respiratory failure with hypoxia; R65.21 Severe sepsis with septic shock; E13.10 Other specified diabetes mellitus with ketoacidosis without coma; G93.49 Other encephalopathy; N17.9 Acute kidney failure, unspecified; E87.2 Acidosis; E87.1 Hypo-osmolality and hyponatremia; N30.01 Acute cystitis with hematuria; E87.5 Hyperkalemia; I46.9 Cardiac arrest, cause unspecified; E88.09 Other disorders of plasma-protein metabolism, not elsewhere classified; I48.91 Unspecified atrial fibrillation; I12.9 Hypertensive chronic kidney disease with stage 1 through stage 4 chronic kidney disease, or unspecified chronic kidney disease; N18.9 Chronic kidney disease, unspecified; B96.20 Unspecified Escherichia coli [E. coli] as the cause of diseases classified elsewhere; E13.22 Other specified diabetes mellitus with diabetic chronic kidney disease; Z96.649 Presence of unspecified artificial hip joint; Z66 Do not resuscitate
CPT/HCPCS: 31500; 36415; 36556; 36600; 70450; 71010; 76775; 80048; 80053; 81001; 81003; 82550; 82570; 82803; 82962; 83036; 83605; 83735; 84100; 84300; 84436; 84479; 84484; 84560; 85025; 85610; 85730; 87040; 87081; 87086; 89190; 90935; 92950; 93005; 93306; 94002; 94003; 94770; 96361; 96365; 96366; 96367; 96375; 96376; C1752; C9113; J0171; J0282; J0461; J0692; J1644; J1815; J1956; J2150; J2185; J2270; J2543; J7030; J7042; J7060; J7070; P9047